=== PATIENT | female | born 1945 | race Asian ===

== ENCOUNTER 2019-04-18 18:48 | Inpatient (IN) | payer OTHER ==
[~2019-04-18] VITALS: Ht 162.6 cm; Wt 57.2 kg
[2019-04-18] MEDS: NACL 0.9% 1,000 ML IV SCH
[2019-04-18 19:01] VITALS: BP 169/89
--- NOTE | 2019-04-18 19:30 | NUR ---
74 Y/O F BIB DAUGHTER WITH C/O DIZZINESS SINCE FRIDAY. PER PT DAUGHTER "HAD SPINAL SURGERY 3 MONTHS AGO. LATELY WE NOTICED SHE IS WEAKER AND HAVING MORE FALLS." AAOX4. GCS 15. SPEECH CLEAR. BEHAVOIOR APPROPIATE AND CALM. PERRL PRESENT. DAUGHTER AT BEDSIDE. ERMD NOTIFIED. WILL CONTINUE TO MONITOR.
[2019-04-18 19:43] LABS: BASOPHILS % (AUTO) 0.4 % (0.0-2.0); EOSINOPHILS # (AUTO) 0.1 K/uL (0-0.4); EOSINOPHILS % (AUTO) 2.8 % (0.0-4.0); HEMATOCRIT 33.7 % (36-48); HEMOGLOBIN 11.2 g/dL (12.0-16.0); LYMPHOCYTES # (AUTO) 1.7 K/uL (2.5-16.5); LYMPHOCYTES % (AUTO) 30.7 % (20.5-51.1); MEAN CORPUSCULAR HEMOGLOBIN 30 pg (27-31); MEAN CORPUSCULAR HGB CONC 33 g/dL (33-37); MEAN CORPUSCULAR VOLUME 89.3 fL (80-94); MONOCYTES # (AUTO) 0.7 K/uL (0.8-1.0); MONOCYTES % (AUTO) 12.2 % (1.7-9.3); NEUTROPHILS # (AUTO) 2.9 K/uL (1.8-7.7); NEUTROPHILS % (AUTO) 53.9 % (42.2-75.2); PLATELET COUNT (AUTO) 188 K/uL (140-450); RED BLOOD CELL COUNT(AUTO) 3.77 MIL/uL (4.20-5.40); RED CELL DISTRIBUTION WIDTH 14.5 % (11.6-13.7); WHITE BLOOD COUNT (AUTO) 5.4 K/uL (4.8-10.8)
[2019-04-18] MEDS ORDERED: NACL 0.9% 1,000 ML IV ONE (19:55)
[2019-04-18 19:59] LABS: ALBUMIN 3.5 g/dL (3.4-5.0); ANION GAP 12.2 (8-16); ASPARTATE AMINOTRANSFERASE 26 U/L (15-37); CARBON DIOXIDE 27.7 mmol/L (21-32); CHLORIDE 106 mmol/L (98-107); CREATININE 1.4 mg/dL (0.6-1.3); GLUCOSE 146 mg/dL (74-106); POTASSIUM 3.9 mmol/L (3.5-5.1); SODIUM SERUM 142 mmol/L (136-145); TOTAL BILIRUBIN 0.3 mg/dL (0.0-1.0); UREA NITROGEN, BLOOD 21 mg/dL (7-18)
--- NOTE | 2019-04-18 20:11 | NUR ---
# 14 FR Urinary catheter inserted utilizing sterile technique. Immediate return of 300 ml YELLOW/CLEAR urine noted. Urine sample collected and sent to lab. Pt tolerated procedure WELL, CATH REMOVED. PROCEDURE CHAPERONED BY JETT MARK.
--- NOTE | 2019-04-18 20:30 | NUR ---
PT LAYING SUPINE. VSS AT THIS TIME. DAUGHTER AT BEDSIDE. WILL CONTINUE TO MONITOR.
[2019-04-18 21:44] LABS: APPEARANCE,URINE CLEAR (CLEAR); BILIRUBIN,URINE NEGATIVE (NEGATIVE); BLOOD, URINE NEGATIVE (NEGATIVE); COLOR,URINE YELLOW (YELLOW); LEUKOCYTE ESTERASE ,URINE NEGATIVE (NEGATIVE); NITRITE, URINE NEGATIVE (NEGATIVE); PH,URINE 7.5 (5.0-9.0); UGLUCOSE NEGATIVE (NEGATIVE)
--- NOTE | 2019-04-18 22:03 | NUR ---
DR. HOLLAND EVALUATING PT
--- NOTE | 2019-04-18 22:05 | NUR ---
ATTEMPED TO AMBULATE PT. PT UNABLE TO STAND WITHOUT ASSISTANCE. PT STATED " MY LEFT LEG FEELS WEAK. I CANT PUT ANY STRENGTH ON IT." DR. HOLLAND NOTIFIED.
[2019-04-18] MEDS ORDERED: MORPHINE SULFATE 2 MG/ML SYR IVP ONE (22:20)
--- NOTE | 2019-04-18 22:39 | NUR ---
PT RETURNED FROM CT
--- NOTE | 2019-04-18 22:39 | NUR ---
PT BACK FROM CT.
--- NOTE | 2019-04-18 23:30 | NUR ---
DR. HOLLAND BEDSIDE EVALUATING PT
[2019-04-18] MEDS ORDERED: ONDANSETRON 4 MG/2 ML VIAL IM/IVP PRN (23:45)
[2019-04-18] MEDS ORDERED: DOCUSATE SODIUM 100 MG GELCAP PO PRN (23:45)
[2019-04-18] MEDS ORDERED: HYDROcodone/APAP 7.5/325 MG 1 TAB PO PRN (23:45)
[2019-04-18] MEDS ORDERED: ACETAMINOPHEN 325 MG TAB PO PRN (23:45)
[2019-04-19] MEDS ORDERED: MEDICATION REC. PHARMACY CONS. 1 EA MISC MC PRN (00:05)
[2019-04-19 00:13] LABS: PROTHROMBIN TIME 10.4 secs (10.8-13.4)
[2019-04-19] MEDS ORDERED: ABAL1.56 SQ (00:15)
[2019-04-19] MEDS ORDERED: ASPI-1718 PO (00:15)
[2019-04-19] MEDS ORDERED: FENO145T PO (00:15)
[2019-04-19] MEDS ORDERED: FERR-252 PO (00:15)
[2019-04-19] MEDS ORDERED: CARB1TAB6 PO (00:15)
[2019-04-19] MEDS ORDERED: MEMA28CE1 PO (00:15)
[2019-04-19] MEDS ORDERED: DOCU-299 PO (00:15)
[2019-04-19] MEDS ORDERED: AZIL40TA PO (00:15)
[2019-04-19] MEDS ORDERED: OMEG10005 PO (00:15)
[2019-04-19] MEDS ORDERED: DULO60EC PO (00:15)
[2019-04-19] MEDS ORDERED: AMIO100T3 PO (00:15)
[2019-04-19] MEDS ORDERED: GABA300C PO (00:15)
[2019-04-19] MEDS ORDERED: MELA5TAB6 PO (00:15)
[2019-04-19] MEDS ORDERED: MULT-153 PO (00:15)
--- NOTE | 2019-04-19 00:15 | NUR ---
Patient will be admitted to care of Dr. Farr. Admited to [facility]. Will go to room 128A. Belongings list completed. VSS at time of transport. Report to JETT Woodard. Transfer of care at this time.
[2019-04-19 00:20] VITALS: BP 178/89
--- NOTE | 2019-04-19 00:20 | NUR ---
REPORT RECEIVED FROM ED NURSE AT BEDSIDE. PT IN STABLE CONDITION. AAOX4. INTRODUCED SELF TO PT AND FAMILY. BOARD UPDATED. NO COMPLAINTS OF PAIN. NO SOB. AFEBRILE. PT NOT ABLE TO AMBULATE BY HERSELF. PT INCONTINENT. IV SITE L HAND 22G RUNNING NS@40ML/HR PATENT AND INTACT. SKIN WARM, DRY, AND INTACT WITH NO OPEN WOUNDS. BED LOCKED IN LOW POSITION. CALL RIDLEY WITHIN REACH. SAFETY PRECAUTION IN PLACE.
[2019-04-19 00:38] LABS: FREE T4 (FREE THYROXINE) 1.13 ng/dL (0.76-1.46); MAGNESIUM 2.1 mg/dL (1.8-2.4); PHOSPHORUS 2.9 mg/dL (2.5-4.9); THYROID STIMULATING HORMONE 1.69 uIU/mL (0.34-3.74)
[2019-04-19] MEDS ORDERED: CARBIDOPA/LEVODOPA 10/100 MG 1 TAB PO SCH (00:40)
[2019-04-19] MEDS ORDERED: hydrALAZINE 20 MG/ML VIAL IVP PRN (00:40)
--- NOTE | 2019-04-19 00:45 | NUR ---
PT BP ELEVATED@178/89. NOTIFIED. AWAITING ORDERS.
[2019-04-19] MEDS ORDERED: LOSA50TA66 PO (00:48)
--- NOTE | 2019-04-19 01:11 | NUR ---
NORVASC GIVEN FOR INCREASED BP. MELATONIN GIVEN FOR SLEEP. PT TOLERATED WELL.
[2019-04-19] MEDS ORDERED: amLODIPine 5 MG TAB PO SCH (01:15)
[2019-04-19] MEDS ORDERED: MELATONIN 3 MG TAB PO SCH (01:30)
--- NOTE | 2019-04-19 02:45 | NUR ---
BP REASSESSED AFTER GIVEN AMLODIPINE. 155/74. NOTIFIED. NO FURTHER ORDERS.
--- NOTE | 2019-04-19 04:25 | NUR ---
PT AWAKE AND ALERT IN BED TRYING TO SLEEP. NO S/S OF DISTRESS NOTED. WILL CONTINUE TO MONITOR.
--- NOTE | 2019-04-19 06:20 | NUR ---
PT SLEEPING COMFORTABLY IN BED. NO S/S OF DISTRESS NOTED. WILL CONTINUE TO MONITOR.
[2019-04-19 06:51] LABS: BASOPHILS % (AUTO) 0.6 % (0.0-2.0); EOSINOPHILS # (AUTO) 0.1 K/uL (0-0.4); EOSINOPHILS % (AUTO) 2.9 % (0.0-4.0); HEMATOCRIT 33.3 % (36-48); HEMOGLOBIN 11.3 g/dL (12.0-16.0); LYMPHOCYTES # (AUTO) 1.5 K/uL (2.5-16.5); MEAN CORPUSCULAR HEMOGLOBIN 30 pg (27-31); MEAN CORPUSCULAR HGB CONC 34 g/dL (33-37); MEAN CORPUSCULAR VOLUME 89.8 fL (80-94); MONOCYTES # (AUTO) 0.5 K/uL (0.8-1.0); MONOCYTES % (AUTO) 10.4 % (1.7-9.3); NEUTROPHILS # (AUTO) 2.6 K/uL (1.8-7.7); NEUTROPHILS % (AUTO) 55.1 % (42.2-75.2); PLATELET COUNT (AUTO) 179 K/uL (140-450); RED BLOOD CELL COUNT(AUTO) 3.71 MIL/uL (4.20-5.40); RED CELL DISTRIBUTION WIDTH 14.4 % (11.6-13.7); WHITE BLOOD COUNT (AUTO) 4.8 K/uL (4.8-10.8)
[2019-04-19 07:01] LABS: CARBON DIOXIDE 24.9 mmol/L (21-32); CHLORIDE 110 mmol/L (98-107); CREATININE 1.1 mg/dL (0.6-1.3); GLUCOSE 102 mg/dL (74-106); POTASSIUM 3.9 mmol/L (3.5-5.1); SODIUM SERUM 144 mmol/L (136-145); UREA NITROGEN, BLOOD 14 mg/dL (7-18)
--- NOTE | 2019-04-19 07:28 | NUR ---
REPORT GIVEN TO AM NURSE AT BEDSIDE. PT IN STABLE CONDITION.
--- NOTE | 2019-04-19 07:34 | NUR ---
RECEIVED HAND OFF REPORT FROM PICKLER HELPER NURSE PT IS ASLEEP IN BED PT IS STABLE AND IN NO APPARENT DISTRESS. ALL SAFETY MEASURES ARE IN PLACE. WILL CONTINUE TO MONITOR.
[2019-04-19 08:00] VITALS: BP 163/89
[2019-04-19] MEDS ORDERED: LOSARTAN 50 MG TAB PO SCH (09:00)
[2019-04-19] MEDS ORDERED: AMANTADINE 100 MG CAP PO SCH (09:00)
[2019-04-19] MEDS: DOCUSATE SODIUM 100 MG GELCAP PO SCH ×2 (09:04→22:26)
[2019-04-19] MEDS: DULoxetine 30 MG CAPDR PO SCH (09:04)
[2019-04-19] MEDS: amLODIPine 5 MG TAB PO SCH (09:04)
[2019-04-19] MEDS: FENOFIBRATE 48 MG TAB PO SCH (09:06)
[2019-04-19] MEDS: GABAPENTIN 300 MG CAP PO SCH (09:06)
[2019-04-19] MEDS: ASPIRIN 81 MG TAB.CHEW PO SCH (09:06)
[2019-04-19] MEDS: LOSARTAN 50 MG TAB PO SCH (09:11)
--- NOTE | 2019-04-19 09:25 | NUR ---
SYMMETRAL NOT IN [facility] OR [place] CALLED PHARMACY THEY STATED THEY DONT HAVE IT AND WANT THE FAMILY TO BRING THIS MEDICATION. WILL CALL FAMILY AND ASK THEM TO BRING THE MEDICATION
--- NOTE | 2019-04-19 09:27 | NUR ---
CALLED AND LEFT VOICEMAIL FOR DEBORA PT DAUGHTER [phone] FOR THE FAMILY TO BRING SYMETRAL
--- NOTE | 2019-04-19 10:06 | NUR ---
PTS SON IS AT BEDSIDE. HE CALLED HIS SISTER I ASKED HER TO BRING THE PATIENTS MEDICATIONS IN THE BOTTLES BECAUSE THE PHARMACY IS ASKING FOR 2 OF THE MEDICATIONS. THE PT DAUGHTER STATED THAT SHE IS AWARE AND SHE FORGOT. BUT SHE WILL BRING THEM LATER THIS AFTERNOON. THE PTS SON ASKED ABOUT THE DIAPERS, I TOLD HIM WE ONLY USE THE KIND THAT ARE ON THE PT. HE ASKED IF HE COULD BRING HIS OWN BECAUSE THE MOTHER IS MORE COMFORTABLE IN THOSE. I SAID THAT IS OK
--- NOTE | 2019-04-19 12:50 | NUR ---
FREQUENT ROUNDING ON THE PT. PT IS AWAKE IN BED PT IS STABLE AND IN NO APPARENT DSITRESS. ALL SAFETY MEASURES ARE IN PLACE AND WILL CONTINUE TO MONITOR,
--- NOTE | 2019-04-19 15:12 | NUR ---
FREQUENT ROUNDING ON PT. PT IS AWAKE IN BED PT IS STABLE AND IN NO APPARENT DISTRESS. ALL SAFETY MEASURES ARE IN PLACE AND WILL CONTINUE TO MONITOR.
--- NOTE | 2019-04-19 16:05 | NUR ---
SPOKE WITH PTS DAUGHTER AGAIN ABOUT BRINGING THE HOME MEDICATIONS. SHE STATED THAT SHE WILL BRING THEM SOMETIME THIS EVENING. INFORMED CATRINA THAT WE ARE WORKING ON GETTING THE MEDICATIONS AND THAT THE FAMILY IS AWARE THAT WE NEED THE MEDICATIONS
--- NOTE | 2019-04-19 16:25 | NUR ---
FREQUENT ROUNDING ON PT PT IS STABLE AND IN NO APPARENT DISTRESS. ALL SAFETY MEASURES ARE IN PLACE. WILL CONTINUE TO MONITOR.
[2019-04-19 16:29] VITALS: BP 158/87
--- NOTE | 2019-04-19 18:48 | NUR ---
FREQUENT ROUNDING ON PT. PT IS STABLE AND IN NO APPARENT DISTRESS. ALL SAFETY MEASURES ARE IN PLACE. WILL CONTINUE TO MONITOR
--- NOTE | 2019-04-19 19:00 | NUR ---
PT FAMILY BROUGHT SOME HOME MEDICATIONS. NOT THE ONES WE ASKED FOR TOOK TO PHARMACY. BEFORE THEY CLOSED.
--- NOTE | 2019-04-19 19:30 | NUR ---
RECEIVED REPORT FROM JORGE FRAUSTO DAYSHIFT NURSE AT BEDSIDE FOR CONTINUITY OF CARE, PT IN STABLE CONDITION.
--- NOTE | 2019-04-19 19:34 | NUR ---
ENDORSED PT TO TOOL AND GAUGE INSPECTOR NURSE PT IS STABLE AND IN NO APPARENT DISTRESS. ALL SAFETY MEASURES ARE IN PLACE.
--- NOTE | 2019-04-19 20:00 | NUR ---
PT IN BED AOX2. ALL FALLS PRECAUTIONS IN PLACE. AND FAMILY AT BEDSIDE. V/S FOLLOWS T 97.6 P 72 R 18 B/P 145/81 02 98% WITH ROOM AIR. PT IS ARABIC SPEAKING. IV SITE ON L HAND 22G INTACT AND FLUSHED PATENT. FAMILY TRANSLATED FOR PT THAT SHE IS COMPLAINING OF PAIN IN IV SITE ON LEFT HAND. IV FLUIDS STOPPED AT THIS TIME.
[2019-04-19] MEDS ORDERED: SIMVASTATIN 10 MG TAB PO SCH (21:00)
--- NOTE | 2019-04-19 21:00 | NUR ---
PT IN BED ALL FALLS PRECAUTIONS IN PLACE. ASBESTOS HANDLER PHONE USED FOR MEDICATION ADMINISTRATION AND EDUCATION. IV SITE WAS FLUSHED PATENT WITH NO C/O VOICED. PT GIVEN DUE MEDS OF COLACE, MELATONIN AND HEPARIN. USED [employer] TRANSLATION SYSTEM WITH ASBESTOS HANDLER SPARKLE #[id number]. PT WAS ALSO ASKED VIA ASBESTOS HANDLER PHONE QUESTIONS OF ORIENTATION. PT WAS ABLE TO RECOGNIZE THAT SHE WAS IN A HOSPITAL AND SHE WAS AWARE OF THE DAY AND DATE. HOWEVER , SHE WAS ASKED IF SHE TAKES CARVA- LEVADOPA AT HOME AND IF SO HOW MUCH. THROUGH ASBESTOS HANDLER PT SAID SHE DOESNT KNOW.
--- NOTE | 2019-04-19 22:00 | NUR ---
PT TURNED, CHANGED AND REPOSITIONED IN BED.
[2019-04-19] MEDS: MELATONIN 3 MG TAB PO SCH (22:27)
[2019-04-19] MEDS: NACL 0.9% 1,000 ML IV SCH (23:43)
[2019-04-20] VITALS: BP 144/82
--- NOTE | 2019-04-20 00:35 | NUR ---
PT IN BED AND SPEAKING ALBANIAN TO PRIMARY NURSE, LUMI Mask LOT WORKER PHONE WAS USED WITH LOCAL SALES MANAGER KYLER #[id number]. THROUGH LOT WORKER, PT DOESN'T WANT TO HAVE FLUIDS RUNNING OVERNIGHT AND THAT SHE WONT GET TO SLEEP DUE TO HAVING TO URINATE A LOT. PT ALSO REQUEST IV SITE TO COME OUT AT THIS TIME. PT ASKED IF SHE WOULD BE WILLING TO HAVE ANOTHER SITE INSERTED AND SHE SAID CAN WE DO IT TOMORROW SHE DOESN'T WANT IT DONE NOW. PRIMARY NURSE ACKNOWLEDGED HE WISHES AND IV SITE WAS TAKEN OUT.
--- NOTE | 2019-04-20 01:15 | NUR ---
PT STARTED SPEAKING KINYARWANDA AND PAPER PRODUCTS SUPERVISOR PHONES USING PAYMEY SYSTEM WERE USED. PAPER PRODUCTS SUPERVISOR ELIOT#[id number]. PT WAS CONFUSED AND DIDN'T WANT THE PROVIDED PULL UPS FROM FAMILY. PT WAS COMPLAINING IT WAS TOO BIG. EXPLAINED VIA PAPER PRODUCTS SUPERVISOR THAT THESE SUPPLIES WERE BROUGHT FROM FAMILY AND THE HOSPITAL DOESN'T HAVE INCONTINENT SUPPLIES. PT DID ALLOW NURSE TO CHANGE AND REPOSITION PT. ALL FALLS PROTOCOL IN PLACE.
--- NOTE | 2019-04-20 04:30 | NUR ---
PT IN BED, ALL FALLS PRECAUTIONS IN PLACE, PT TURNED, CHANGED AND REPOSITION. NO S/S OF PAIN OR DISTRESS NOTED.
[2019-04-20 06:12] LABS: CARBON DIOXIDE 25.7 mmol/L (21-32); CHLORIDE 108 mmol/L (98-107); CREATININE 1.1 mg/dL (0.6-1.3); GLUCOSE 96 mg/dL (74-106); POTASSIUM 3.7 mmol/L (3.5-5.1); SODIUM SERUM 141 mmol/L (136-145); UREA NITROGEN, BLOOD 16 mg/dL (7-18)
[2019-04-20 06:19] LABS: BASOPHILS % (AUTO) 0.6 % (0.0-2.0); EOSINOPHILS # (AUTO) 0.2 K/uL (0-0.4); EOSINOPHILS % (AUTO) 3.3 % (0.0-4.0); HEMATOCRIT 33.5 % (36-48); HEMOGLOBIN 11.3 g/dL (12.0-16.0); LYMPHOCYTES % (AUTO) 37.7 % (20.5-51.1); MEAN CORPUSCULAR HEMOGLOBIN 30 pg (27-31); MEAN CORPUSCULAR HGB CONC 34 g/dL (33-37); MEAN CORPUSCULAR VOLUME 89.7 fL (80-94); MONOCYTES # (AUTO) 0.5 K/uL (0.8-1.0); NEUTROPHILS # (AUTO) 2.6 K/uL (1.8-7.7); NEUTROPHILS % (AUTO) 48.4 % (42.2-75.2); PLATELET COUNT (AUTO) 180 K/uL (140-450); RED BLOOD CELL COUNT(AUTO) 3.74 MIL/uL (4.20-5.40); RED CELL DISTRIBUTION WIDTH 14.2 % (11.6-13.7); WHITE BLOOD COUNT (AUTO) 5.4 K/uL (4.8-10.8)
--- NOTE | 2019-04-20 06:21 | NUR ---
PT IN BED SLEEPING, NO S/S OF PAIN OR DISTRESS NOTED.
--- NOTE | 2019-04-20 07:28 | NUR ---
REPORT GIVEN TO JORGE FRAUSTO DAYSHIFT NURSE AT BEDSIDE FOR CONTINUITY OF CARE, PT IN STABLE CONDITION.
--- NOTE | 2019-04-20 07:40 | NUR ---
RECEIVED HAND OFF REPORT FROM CORPORATE LEGAL INTERN RN PT IS STABLE AND IN NO APPARENT DISTRESS,
--- NOTE | 2019-04-20 07:42 | NUR ---
PT IS AGGITATED AND TRYING TO GET OUT OF BED. USED BLUE PHONE SALAD BAR CLERK TO EXPLAIN TO THE PATIENT THAT SHE CANT GET OUT OF BED WITHOUT ASKING FOR ASSISTANCE. PT STATED SHE WANTS TO LEAVE. CALLED PTS DAUGHTER. PTS DAUGHTER STATED THAT SHE WAS 10 MINUTES AWAY AND WILL BE HERE SOON
--- NOTE | 2019-04-20 07:55 | NUR ---
PT DAUGHTER IS AT THE BEDSIDE PT IS COOPERATIVE AND HAPPIER. PT IS STABLE AND IN NO APPARENT DISTRESS. ALL SAFETY MEASURES ARE IN PLACE WILL CONTINUE TO MONITOR,
[2019-04-20 08:00] VITALS: BP 144/84
--- NOTE | 2019-04-20 08:35 | NUR ---
DAUGHTER BROUGHT HOME MEDICATIONS TOOK INVENTORY AND PLACED SEVERAL MEDICATIONS IN THE PHARMACY THE MEDICATIONS WE DO NOT HAVE AND HAVE BEEN ASKING THE FAMILY TO BRING.
--- NOTE | 2019-04-20 09:00 | NUR ---
PT WALKING AROUND UNIT WITH PHYSICAL THERAPY
--- NOTE | 2019-04-20 09:14 | NUR ---
PATIENT HAS BEEN SCREENED AND CATEGORIZED MODERATE NUTRITION RISK. PATIENT WILL BE SEEN WITHIN 3-5 DAYS OF ADMISSION. 04/22/19GAYATHRI BELTR[address]N RD
[2019-04-20] MEDS ORDERED: MEMANTINE 28 MG PO SCH (10:18)
[2019-04-20] MEDS: FENOFIBRATE 48 MG TAB PO SCH (10:55)
[2019-04-20] MEDS: GABAPENTIN 300 MG CAP PO SCH (10:55)
[2019-04-20] MEDS: ASPIRIN 81 MG TAB.CHEW PO SCH (10:55)
[2019-04-20] MEDS: DOCUSATE SODIUM 100 MG GELCAP PO SCH ×2 (10:55→21:07)
[2019-04-20] MEDS: DULoxetine 30 MG CAPDR PO SCH (10:56)
[2019-04-20] MEDS: amLODIPine 5 MG TAB PO SCH (10:56)
[2019-04-20] MEDS: LOSARTAN 50 MG TAB PO SCH (10:57)
--- NOTE | 2019-04-20 11:17 | NUR ---
FREQUENT ROUNDING ON PT PT IS STABLE AND IN NO APPARENT DISTRESS. ALL SAFETY MEASURES ARE IN PLACE. WILL CONTINUE TO MONITOR.
[2019-04-20] MEDS ORDERED: AZILSARTAN 40 MG PO SCH (11:36)
[2019-04-20] MEDS: AMANTADINE 100MG TABLET PO SCH (12:04)
[2019-04-20] MEDS: CARBIDOPA LEVODOPA PO SCH (12:04)
--- NOTE | 2019-04-20 13:36 | NUR ---
FREQUENT ROUNDING ON PT IS STABLE AND IN NO APPARENT DISTRESS. ALL SAFETY MEASURES ARE IN PLACE. WILL CONTINUE TO MONITOR.
--- NOTE | 2019-04-20 15:25 | NUR ---
FREQUENT ROUNDING ON PATIENT PT IS STABLE AND IN NO APPARENT DISTRESS. ALL SAFETY MEASURES ARE IN PLACE AND IN NO APPARENT DISTRESS.
[2019-04-20 16:00] VITALS: BP 146/82
--- NOTE | 2019-04-20 19:27 | NUR ---
RECEIVED REPORT FROM DAY SHIFT NURSE FOR CONTINUITY OF CARE. PATIENT IS LYING DOWN IN BED, AWAKE, SON IS AT BEDSIDE. PATIENT IS IN ROOM AIR, NO IV. DENIES PAIN AT THIS TIME. BED IS IN LOW POSITION, SIDE RAILS ARE UP, AND CALL LIGHT WITHIN REACH. WILL CONTINUE TO MONITOR PATIENT.
--- NOTE | 2019-04-20 19:27 | NUR ---
ENDORSED PT TO CHIEF DESIGN DRAFTER NURSE PT IS STABLE AND IN NO APPARENT DISTRESS. ALL SAFETY MEASURES ARE IN PLACE WILL CONTINUE TO MONITOR,.
--- NOTE | 2019-04-20 20:05 | NUR ---
PATIENT LYING DOWN IN BED, SON AT BEDSIDE, INFORMED ABOUT URINE SAMPLE COLLECTION ORDER. BEDSIDE COMMODE AT BEDSIDE. INFORMED PATIENT ABOUT INSERTING NEW IV LINE. PATIENT REFUSED. DR. VAN NOTIFIED AND AWARE.
--- NOTE | 2019-04-20 21:00 | NUR ---
PATIENT LYING DOWN IN BED, SON AT BEDSIDE. ADMINISTERED MEDICATIONS ORDERED AND EDUCATED PATIENT AND SON REGARDING MEDICATIONS. PATIENT TOLERATED MEDICATION WELL. WILL CONTINUE TO MONITOR PATIENT.
[2019-04-20] MEDS: MELATONIN 3 MG TAB PO SCH (21:07)
[2019-04-20 21:51] LABS: APPEARANCE,URINE CLEAR (CLEAR); BILIRUBIN,URINE NEGATIVE (NEGATIVE); BLOOD, URINE NEGATIVE (NEGATIVE); COLOR,URINE YELLOW (YELLOW); LEUKOCYTE ESTERASE ,URINE NEGATIVE (NEGATIVE); NITRITE, URINE NEGATIVE (NEGATIVE); UGLUCOSE NEGATIVE (NEGATIVE)
[2019-04-20] MEDS: NACL 0.9% 1,000 ML IV SCH (23:43)
--- NOTE | 2019-04-21 | NUR ---
PATIENT LYING DOWN SLEEPING IN BED. VITAL SIGNS WERE TAKEN AND DENIES PAIN AT THIS TIME. WILL CONTINUE TO MONITOR PATIENT.
[2019-04-21 00:15] VITALS: BP 128/72
--- NOTE | 2019-04-21 02:30 | NUR ---
PATIENT LYING DOWN IN BED SLEEPING. NO SIGNS OF DISTRESS AT THIS TIME. WILL CONTINUE TO MONITOR PATIENT.
--- NOTE | 2019-04-21 04:30 | NUR ---
PATIENT LYING IN BED SLEEPING. NO SIGNS OF DISTRESS AT THIS TIME. WILL CONTINUE TO MONITOR PATIENT.
--- NOTE | 2019-04-21 07:20 | NUR ---
ENDORSED PATIENT TO DAY SHIFT NURSE FOR CONTINUITY OF CARE. PATIENT IS ASLEEP, LYING DOWN IN BED, WITH NO SIGNS OF DISTRESS. BED IS IN LOW POSITION, SIDE RAILS ARE UP, CALL LIGHT WITHIN REACH.
--- NOTE | 2019-04-21 07:22 | NUR ---
RECEIVED REPORT FROM CONSTRUCTION CRAFT LABORER NURSE FOR CONTINUITY OF CARE. PATIENT IS AWAKE AND RESTING ON BED AT THIS TIME. RESPIRATION EVEN AND UNLABORED ON RA. PATIENT SPEAKS JAPANESE ONLY, AND SHE IS ABLE TO MAKE NEEDS KNOWN BY HAND GESTURES AND SAYING YES OR NO. DENIES PAIN AND SOB AT THIS TIME. NO SIGNS OF DISTRESS NOTED. NO IV SITE. PATIENT AND FAMILY REFUSED IV INSERT. WAS AWARE. SKIN INTACT AND CLEAN. PATIENT IS TRANSFER WITH ASSIST AND UNSTEADY GAIT. PATIENT IS INCONTINENT. BED IS IN LOW POSITION, SIDE RAILS ARE UP, AND CALL LIGHT WITHIN REACH.
[2019-04-21 08:00] VITALS: BP 153/89
[2019-04-21] MEDS ORDERED: MEMANTINE 28 MG PO SCH (09:00)
[2019-04-21] MEDS ORDERED: AZILSARTAN 40 MG PO SCH (09:00)
[2019-04-21] MEDS ORDERED: CARBIDOPA LEVODOPA PO SCH (09:00)
[2019-04-21] MEDS: FENOFIBRATE 48 MG TAB PO SCH (09:07)
[2019-04-21] MEDS: ASPIRIN 81 MG TAB.CHEW PO SCH (09:08)
[2019-04-21] MEDS: DULoxetine 30 MG CAPDR PO SCH (09:08)
[2019-04-21] MEDS: DOCUSATE SODIUM 100 MG GELCAP PO SCH (09:08)
[2019-04-21] MEDS: amLODIPine 5 MG TAB PO SCH (09:09)
[2019-04-21] MEDS: GABAPENTIN 300 MG CAP PO SCH (09:09)
[2019-04-21] MEDS: AMANTADINE 100MG TABLET PO SCH ×2 (09:12→12:13)
--- NOTE | 2019-04-21 09:21 | NUR ---
ADMINISTERED MEDS PER MD ORDER, PATIENT TOLERATED WELL. MEDS EDUCATION PROVIDED TO PATIENT AND PATIENT'S DAUGHTER DEBORA AT BEDSIDE. PATIENT DENIES PAIN AND SOB AT THIS TIME. NO SIGNS OF DISTRESS NOTED. SAFETY MEASURES IN PLACE.
--- NOTE | 2019-04-21 10:15 | NUR ---
DR DAVEY PERMITTED PATIENT TO GO SHOWER. WILL NOTIFY INFANT NANNY TO ASSIST PATIENT TO TAKE A SHOWER.
--- NOTE | 2019-04-21 10:40 | NUR ---
CALLED [facility] [phone] SPOKE TO DELILAH, FAXED CLINICALS TO [phone], PER EDLILAH SHE WILL CALL BACK FOR ROOM.
--- NOTE | 2019-04-21 11:15 | NUR ---
PATIENT CAME BACK FROM SHOWER ACCOMPANIED BY HR SYSTEMS ANALYST AND DAUGHTER DEBORA. POSITIONED PATIENT ON BED COMFORTABLY. NO SIGNS OF DISTRESS NOTED. SAFETY MEASURES IN PLACE. BED IN LOW POSITION AND CALL LIGHT WITHIN REACH. INSTRUCTED PATIENT AND DAUGHTER DEBORA TO USE THE CALL LIGHT FOR ANY ASSISTANCE AND BOTH AWARE.
--- NOTE | 2019-04-21 12:10 | NUR ---
ADMINISTERED MEDS PER MD ORDER, PATIENT TOLERATED WELL. NO SIGNS OF DISTRESS NOTED. DAUGHTER DEBORA IS AT BEDSIDE AND ASSISTING PATIENT TO EAT LUNCH. SAFETY MEASURES IN PLACE.
[2019-04-21] MEDS: CARBIDOPA LEVODOPA PO SCH (12:12)
--- NOTE | 2019-04-21 13:18 | NUR ---
CALLED [facility] SPOKE WITH DELILAH,, PATIENT WILL GO TO BED 33-A, DR CATES IS ADMITTING MD.
--- NOTE | 2019-04-21 13:26 | NUR ---
PER DELILAH [facility] BED IS AVAILABLE AFTER 5PM.
--- NOTE | 2019-04-21 13:27 | NUR ---
CALLED [facility] ARRANGED FOR 6PM TAVERN OPERATOR.JETT JEFFREY NOTIFIED.
--- NOTE | 2019-04-21 13:36 | NUR ---
CALLED [facility] AND GAVE FULL REPORT TO CHARLES REDDY RN. ANSWERED ALL CHARLES'S QUESTIONS AND CHARLES WAS AWARE THAT PATIENT IS GOING TO TRANSFER TO HER FACILITY AT [address] IN ROOM 33A UNDER THE CARE OF DR CATES. PROVIDED A CALL BACK NUMBER IF CHARLES HAS ANY FURTHER QUESTION.
--- NOTE | 2019-04-21 13:45 | NUR ---
PATIENT IS RESTING ON BED COMFORTABLY AT THIS TIME. NO SIGNS OF DISTRESS NOTE. SAFETY MEASURES IN PLACE.
--- NOTE | 2019-04-21 14:25 | NUR ---
NOTIFIED PATIENT'S DAUGHTER AT BEDSIDE THAT PATIENT WILL BE TRANSFER TO [facility] AT 1800 TODAY. DEBORA WAS ACKNOWLEDGED AND AWARE OF THE TRANSFER.
[2019-04-21] MEDS ORDERED: ABALOPARATIDE 80 MCG SUBQ SCH (14:30)
--- NOTE | 2019-04-21 14:39 | NUR ---
ADMINISTERED MED VIA SUBQ, PATIENT TOLERATED WELL. PATIENT IS TALKING ON HER PHONE. NO SIGNS OF DISTRESS NOTED. SAFETY MEASURES IN PLACE.
[2019-04-21] MEDS ORDERED: AMLO5TAB PO (14:58)
--- NOTE | 2019-04-21 15:14 | NUR ---
PATIENT IS AWAKE AND LAYING DOWN ON BED. NO SIGNS OF DISTRESS NOTED. SAFETY MEASURES IN PLACE.
--- NOTE | 2019-04-21 15:26 | NUR ---
DISCHARGE DOCUMENT HAS BEEN PREPARED AND CHART HAS BEEN COPY. PATIENT WILL BE MOLDED [facility] BY [facility] AT 1800 AND TRANSFER TO [facility].
[2019-04-21 16:00] VITALS: BP 130/74
--- NOTE | 2019-04-21 17:11 | NUR ---
PATIENT IS AWAKE AND WATCHING TV ON BED. NO SIGNS OF DISTRESS NOTED. SAFETY MEASURES IN PLACE. BED IN LOW POSITION AND CALL LIGHT WITHIN REACH.
--- NOTE | 2019-04-21 17:36 | NUR ---
PATIENT IS TALKING TO SON SMILEY AT BEDSIDE. NO SIGNS OF DISTRESS NOTED. SAFETY MEASURES IN PLACE.
--- NOTE | 2019-04-21 18:10 | NUR ---
DISCHARGE INSTRUCTION PROVIDED TO PATIENT AND DAUGHTER DEBORA AT BEDSIDE. EDUCATED PATIENT AND FAMILY ON DISEASE MANAGEMENT, SIGNS AND SYMPTOMS, MEDICATION REGIMEN AND SIDE EFFECT. BOTH VERBALIZED UNDERSTANDING. ANSWERED ALL PATIENT�S AND FAMILY�S QUESTION. RETURNED ALL PATIENT�S OWN MEDS AND DAUGHTER TENZIN HAS VERIFIED MEDS. TENZIN HAS CHECKED ALL THE CABINETS AND TOOK ALL PATIENT�S BELONGINGS. REMOVED ALL ID BANDS FROM PATIENT. PATIENT IS GOING TO TRANSFER TO [facility] AT THIS TIME ACCOMPANY WITH [facility] AND DAUGHTER DEBORA. PATIENT IS IN STABLE CONDITION.
[2019-04-22] MEDS ORDERED: ABALOPARATIDE 80 MCG SUBQ SCH (09:00)
== END 2019-04-21 18:10 | DRG 73 ==
LOC: MED 18:48 → MTU 23:46 → MMU 04-19 00:07
PROVIDERS: ADMIT General Practice; ATTEND General Practice
DX: G90.8 Other disorders of autonomic nervous system (principal); N17.0 Acute kidney failure with tubular necrosis; M81.0 Age-related osteoporosis without current pathological fracture; I10 Essential (primary) hypertension; M19.90 Unspecified osteoarthritis, unspecified site; G20 Parkinson's disease; D64.9 Anemia, unspecified; E86.0 Dehydration; F02.80 Dementia in other diseases classified elsewhere, unspecified severity, without behavioral disturbance, psychotic disturbance, mood disturbance, and anxiety; N83.202 Unspecified ovarian cyst, left side; F32.9 Major depressive disorder, single episode, unspecified; E78.5 Hyperlipidemia, unspecified; Z98.1 Arthrodesis status; Z79.899 Other long term (current) drug therapy; Z91.81 History of falling
CPT/HCPCS: 36415; 70450; 71045; 72128; 72131; 80048; 80053; 81003; 83036; 83605; 83735; 83880; 84100; 84439; 84443; 84484; 85025; 85610; 85730; 87081; 93005; 93880; 97110; 97112; 97116; 97530; J1644; J2270; J7030; Q0092

== ENCOUNTER 2019-09-16 09:51 | Inpatient (IN) | payer OTHER ==
[~2019-09-16] VITALS: Ht 165.1 cm; Wt 66.7 kg
[~2019-09-16 09:51] MED LIST: ABAL1.56 SQ; AMLO5TAB PO; ASPI-1718 PO; AZIL40TA PO; CARB1TAB6 PO; DOCU-299 PO; DULO60EC PO; FENO145T PO; FERR-252 PO; GABA300C PO; LOSA50TA66 PO; MELA5TAB6 PO; MEMA28CE1 PO; MULT-153 PO; OMEG10005 PO
[2019-09-16 09:53] VITALS: BP 94/58
--- NOTE | 2019-09-16 09:54 | NUR ---
PT BIBA TO BED 02.
--- NOTE | 2019-09-16 10:00 | NUR ---
PT BIBA FOR LOW OXYGEN SATURATION THIS AM, PER EMS PT WAS FOUND TO HAVE A SP02 OF 88% ON RA. PER SON PT HAS NOT BEEN SICK RECENTLY NO COUGH OR SOB NOTED. PT ON ARRIVAL ON RA SP02 AT 94%. RR EVEN AND UNLABORED, BL BS CLEAR THROUGHOUT. PT AWAKE AND ALERT, PT KHMER SPEAKING ONLY. PT ON MONITOR AND 2L NC 02 AT 97%.
[2019-09-16] MEDS ORDERED: GABA400C PO (10:12)
[2019-09-16] MEDS ORDERED: CYAN100T65 PO (10:12)
[2019-09-16] MEDS ORDERED: OSC500 PO (10:12)
[2019-09-16] MEDS ORDERED: AZIL40TA PO (10:12)
[2019-09-16] MEDS ORDERED: CALC-55 PO (10:12)
[2019-09-16] MEDS ORDERED: MAGN400S60 PO (10:17)
[2019-09-16] MEDS ORDERED: DULO60EC PO (10:17)
[2019-09-16] MEDS ORDERED: MELA3TAB56 PO (10:21)
[2019-09-16] MEDS ORDERED: ASCO500T45 PO (10:21)
[2019-09-16] MEDS ORDERED: PYRI-218 PO (10:21)
--- NOTE | 2019-09-16 10:25 | NUR ---
DR SANCHEZ AND LAB AT BEDSIDE.
[2019-09-16] MEDS ORDERED: PROP10DR2 OP (10:26)
[2019-09-16] MEDS ORDERED: TURM500C7 PO (10:29)
[2019-09-16 10:40] LABS: BASOPHILS % (AUTO) 0.1 % (0.0-2.0); EOSINOPHILS % (AUTO) 0.3 % (0.0-4.0); HEMATOCRIT 33.3 % (36-48); HEMOGLOBIN 11.1 g/dL (12.0-16.0); LYMPHOCYTES # (AUTO) 0.3 K/uL (2.5-16.5); LYMPHOCYTES % (AUTO) 3.8 % (20.5-51.1); MEAN CORPUSCULAR HEMOGLOBIN 30 pg (27-31); MEAN CORPUSCULAR HGB CONC 33 g/dL (33-37); MEAN CORPUSCULAR VOLUME 90.4 fL (80-94); MONOCYTES # (AUTO) 0.2 K/uL (0.8-1.0); NEUTROPHILS # (AUTO) 8.1 K/uL (1.8-7.7); NEUTROPHILS % (AUTO) 93.8 % (42.2-75.2); PLATELET COUNT (AUTO) 188 K/uL (140-450); RED BLOOD CELL COUNT(AUTO) 3.69 MIL/uL (4.20-5.40); RED CELL DISTRIBUTION WIDTH 13.7 % (11.6-13.7); WHITE BLOOD COUNT (AUTO) 8.6 K/uL (4.8-10.8)
[2019-09-16 10:52] LABS: PROTHROMBIN TIME 11.3 secs (10.8-13.4)
[2019-09-16 11:02] LABS: CARBON DIOXIDE 24.3 mmol/L (21-32); CHLORIDE 104 mmol/L (98-107); CREATININE 1.2 mg/dL (0.6-1.3); GLUCOSE 110 mg/dL (74-106); POTASSIUM 3.3 mmol/L (3.5-5.1); SODIUM SERUM 139 mmol/L (136-145); UREA NITROGEN, BLOOD 27 mg/dL (7-18)
[2019-09-16 11:08] LABS: ALBUMIN 3.1 g/dL (3.4-5.0); ASPARTATE AMINOTRANSFERASE 32 U/L (15-37); TOTAL BILIRUBIN 0.6 mg/dL (0.0-1.0)
--- NOTE | 2019-09-16 12:04 | NUR ---
PATIENT TAKEN FOR CT SCAN VIA [facility] AT THIS TIME.
--- NOTE | 2019-09-16 12:50 | NUR ---
STRAIGHT CATH PERFOMED USING STERILE TECHNIQUE. 14 FR CATH USED. IMMEDIATE RETURN OF 30 CC YELLOW , CLOUDY URINE NOTED, SAMPLE COLLECTED AND SENT TO LAB.
[2019-09-16] MEDS ORDERED: NACL 0.9% 1,000 ML IV ONE (13:00)
[2019-09-16 13:17] LABS: APPEARANCE,URINE SL CLOUDY (CLEAR); BILIRUBIN,URINE NEGATIVE (NEGATIVE); BLOOD, URINE TRACE-I (NEGATIVE); COLOR,URINE YELLOW (YELLOW); LEUKOCYTE ESTERASE ,URINE 3+ (NEGATIVE); NITRITE, URINE POSITIVE (NEGATIVE); PH,URINE 7.5 (5.0-9.0); UGLUCOSE NEGATIVE (NEGATIVE)
[2019-09-16 13:25] LABS: RBC,URINE 0-5 /HPF (0-5)
[2019-09-16 13:26] LABS: WBC,URINE 60-80 /HPF (0-5)
--- NOTE | 2019-09-16 13:27 | NUR ---
PT LAYING IN BED, FAMILY MEMBERS AT BEDSIDE. RR EVEN AND UNLABORED. DENIES CHEST PAIN OR ANY PAIN. ALL NEEDS MET AT THIS TIME.
[2019-09-16] MEDS ORDERED: cefTRIAXone 1,000 MG VIAL ONE (14:31)
[2019-09-16] MEDS ORDERED: ACETAMINOPHEN 325 MG TAB PO PRN (14:40)
[2019-09-16] MEDS ORDERED: HYDROcodone/APAP 7.5/325 MG 1 TAB PO PRN (14:40)
[2019-09-16] MEDS ORDERED: ALBUTEROL SULFATE/IPRATROPIU 3 ML SOL IH PRN (14:40)
[2019-09-16] MEDS ORDERED: MORPHINE SULFATE 2 MG/ML SYR IVP PRN (14:40)
[2019-09-16] MEDS ORDERED: DOCUSATE SODIUM 100 MG GELCAP PO PRN (14:40)
[2019-09-16] MEDS ORDERED: ONDANSETRON 4 MG/2 ML VIAL IM/IVP PRN (14:40)
[2019-09-16] MEDS ORDERED: MELATONIN 3 MG TAB PO PRN (14:45)
[2019-09-16] MEDS ORDERED: POTASSIUM CHLORIDE 10 MEQ TABER PO SCH (15:00)
--- NOTE | 2019-09-16 15:03 | NUR ---
Patient will be admitted to care of DR MICHEL. Admited to TELE. Will go to [id number]. Belongings list completed. Report to JETT GONZALEZ.
[2019-09-16 15:05] VITALS: BP 108/60
--- NOTE | 2019-09-16 15:05 | NUR ---
RECEIVED PT FROM ER NURSE VIA LILA, PT IS ON BEDREST, CONFUSED AND SPEAKS SINHALA, ACCOMPANIED BY SON, IV LINE ON THE RT AC G. 20 WITH ROCEPHIN INFUSING AT 100ML/HR, SAFETY PRECAUTION INITIATED, ARM BAND PLACED, YELLOW SIGN AT THE DOOR, NO SIGN OF DISTRESS NOTED AND WILL CONTINUE TO MONITOR P;T.
[2019-09-16 15:28] LABS: MAGNESIUM 1.6 mg/dL (1.8-2.4); PHOSPHORUS 1.8 mg/dL (2.5-4.9); THYROID STIMULATING HORMONE 1.15 uIU/mL (0.34-3.74)
--- NOTE | 2019-09-16 15:30 | NUR ---
MRSA SWAB DONE TO PT AND SAMPLE SENT TO LAB.
[2019-09-16] MEDS: NACL 0.9% 1,000 ML IV SCH (15:35)
--- NOTE | 2019-09-16 15:35 | NUR ---
PT WAS STARTED ON IVF OF NS AT 100ML/HR.
--- NOTE | 2019-09-16 15:36 | NUR ---
PT WAS GIVEN 40MEQ K-DUR FOR K LEVEL OF 3.3, TOLERATED ORAL TABLETS, WILL MONITOR PT.
[2019-09-16 16:00] VITALS: BP 116/59
--- NOTE | 2019-09-16 19:20 | NUR ---
ENDORSED PT TO DIRECTOR OF INSTITUTIONAL RESEARCH NURSE, NILSA FOR CONTINUITY OF CARE. PT IS STABLE AT THIS TIME WITH FAMILY ON THE BEDSIDE.
--- NOTE | 2019-09-16 19:21 | NUR ---
RECEIVED REPORT FROM AM SHIFT NURSE. PATIENT AWAKE WITH FAMILY AT BEDSIDE. TAMAZIGHT SPEAKING. A/OX2, CONFUSED. INTRODUCED SELF AND UPDATED BOARD. IV ON RIGHT AC RUNNING IVF. NO COMPLAINT OF PAIN. NO DISTRESS NOTED. BED ON LOW POSITION. BED ALARM ON . CALL LIGHT WITHIN REACH. WILL CONTINUE TO MONITOR.
[2019-09-16] MEDS: ALBUTEROL SULFATE/IPRATROPIU 3 ML SOL IH SCH (19:53)
[2019-09-16 20:00] VITALS: BP 102/60
[2019-09-16] MEDS: GABAPENTIN 100 MG CAP PO SCH (20:21)
[2019-09-16] MEDS: ASCORBIC ACID 500 MG TAB PO SCH (20:21)
[2019-09-16] MEDS: DOCUSATE SODIUM 100 MG GELCAP PO SCH (20:29)
[2019-09-16] MEDS ORDERED: traZODone 50 MG TAB PO SCH (21:00)
--- NOTE | 2019-09-16 21:20 | NUR ---
PATIENT ASLEEP IN BED. VISIBLE CHEST RISE AND FALL NOTED. WILL CONTINUE TO MONITOR.
[2019-09-17] VITALS: BP 87/42
[2019-09-17] MEDS: NACL 0.9% 1,000 ML IV SCH ×3 (00:31→20:36)
[2019-09-17] MEDS ORDERED: NACL 0.9% 500 ML IV ONE (00:50)
--- NOTE | 2019-09-17 00:50 | NUR ---
Vitals taken; patient noted with decreased BP 87/42, MAP 55, HR 72, RR 14, Temp 98.3, O2Sat 97% on room air. Dr. Norris made aware; ordered received for fluid bolus. Will administer and monitor patient. Addendum: 09/17/19 at 0145 by Golden Nelson RN Patient is easily aroused, asymptomatic. Snores while sleeping.
[2019-09-17] MEDS ORDERED: MIDODRINE 5 MG TAB PO SCH (02:20)
--- NOTE | 2019-09-17 02:37 | NUR ---
Midodrine order received and carried out. Will continue to monitor patient.
--- NOTE | 2019-09-17 02:45 | NUR ---
Called [facility] to inquire about patients trending blood pressure. Charge nurse stated that patients SBP "around in the 90's" while patient is asleep.
[2019-09-17 04:00] VITALS: BP 90/52
--- NOTE | 2019-09-17 04:07 | NUR ---
PATIENT ASLEEP. VISIBLE CHEST RISE AND FALL NOTED. VITAL SIGNS TAKEN. BP=90/52, TEMP=98.5, HR=64, RR=17, O2 SAT= 98%. WILL CONTINUE TO MONITOR.
--- NOTE | 2019-09-17 06:05 | NUR ---
PATIENT ASLEEP IN BED. VISIBLE CHEST RISE AND FALL NOTED. NO APPARENT DISTRESS NOTED. BED ALARM ON. BED ON LOW POSITION. CALL LIGHT WITHIN REACH. WILL ENDORSE TO NEXT SHIFT FOR CONTINUITY OF CARE.
[2019-09-17 06:21] LABS: BASOPHILS % (AUTO) 0.3 % (0.0-2.0); EOSINOPHILS # (AUTO) 0.1 K/uL (0-0.4); EOSINOPHILS % (AUTO) 0.6 % (0.0-4.0); HEMATOCRIT 27.4 % (36-48); HEMOGLOBIN 9.1 g/dL (12.0-16.0); LYMPHOCYTES # (AUTO) 1.9 K/uL (2.5-16.5); LYMPHOCYTES % (AUTO) 21.4 % (20.5-51.1); MEAN CORPUSCULAR HEMOGLOBIN 31 pg (27-31); MEAN CORPUSCULAR HGB CONC 33 g/dL (33-37); MEAN CORPUSCULAR VOLUME 91.6 fL (80-94); MONOCYTES # (AUTO) 0.8 K/uL (0.8-1.0); MONOCYTES % (AUTO) 9.6 % (1.7-9.3); NEUTROPHILS % (AUTO) 68.1 % (42.2-75.2); PLATELET COUNT (AUTO) 120 K/uL (140-450); RED BLOOD CELL COUNT(AUTO) 2.99 MIL/uL (4.20-5.40); RED CELL DISTRIBUTION WIDTH 14.3 % (11.6-13.7); WHITE BLOOD COUNT (AUTO) 8.8 K/uL (4.8-10.8)
[2019-09-17 06:43] LABS: ANION GAP 10.8 (8-16); CARBON DIOXIDE 25.6 mmol/L (21-32); CHLORIDE 109 mmol/L (98-107); CREATININE 1.3 mg/dL (0.6-1.3); GLUCOSE 99 mg/dL (74-106); POTASSIUM 4.4 mmol/L (3.5-5.1); SODIUM SERUM 141 mmol/L (136-145); UREA NITROGEN, BLOOD 23 mg/dL (7-18)
[2019-09-17 06:46] LABS: MAGNESIUM 1.6 mg/dL (1.8-2.4); PHOSPHORUS 2.9 mg/dL (2.5-4.9)
[2019-09-17 06:54] LABS: CHOL/HDL RATIO 2.9 (1-4.5)
[2019-09-17] MEDS: ALBUTEROL SULFATE/IPRATROPIU 3 ML SOL IH SCH ×3 (06:59→19:00)
--- NOTE | 2019-09-17 07:41 | NUR ---
RECEIVED REPORT FROM CONDUCTOR SLEEPING CAR NURSE FOR CONTINUITY OF CARE. PATIENT IS HEAVILY SLEEPING DUE TO MEDICATION GIVEN LAST NIGHT. PT AROUSABLE BUT VERY SLEEPY. [place]I SPEAKING. A/OX2, CONFUSED. INTRODUCED SELF AND UPDATED BOARD. IV ON RIGHT AC RUNNING IVF. NO COMPLAINT OF PAIN. NO DISTRESS NOTED. BED ON LOW POSITION. BED ALARM ON . CALL LIGHT WITHIN REACH. WILL CONTINUE TO MONITOR PT CLOSELY.
[2019-09-17 08:00] VITALS: BP 91/57
--- NOTE | 2019-09-17 08:25 | NUR ---
PATIENT HAS BEEN SCREENED AND CATEGORIZED MODERATE NUTRITION RISK. PATIENT WILL BE SEEN WITHIN 3-5 DAYS OF ADMISSION. 09/19/19 09/21/[address]
--- NOTE | 2019-09-17 08:47 | NUR ---
ADMINISTERED MORNING MEDS TO PT. PT TOLERATED THEM WELL. ALL NEEDS CURRENTLY MET. WILL CONTINUE TO ROUND FREQUENTLY ON PT. BED IN LOW POSITION, CALL LIGHT WITHIN REACH. Addendum: 09/17/19 at 1440 by Chery Sullivan RN WAS NOT ABLE TO ADMIN MORNING MEDS SCHEDULED DUE TO PT BEING [place] SLEEPY. PER MD, MEDS TO BE HELD AND CAN GIVE NAMENDA, CYMBALTA, AND NEURONTIN ONCE PT AWAKENS. PT VITALS STABLE. FAMILY AT BEDSIDE. WILL ADMIN MEDS ONCE PT IS AWAKE AND MORE ALERT.
[2019-09-17] MEDS ORDERED: MAG SULF 2000 MG/WATER PREMIX 50 ML IV SCH (09:00)
[2019-09-17] MEDS ORDERED: LOSARTAN 25 MG TAB PO SCH (09:00)
[2019-09-17] MEDS: LACTOBACILLUS RHAMNOSUS GG 1 EACH CAP PO SCH (09:00)
[2019-09-17] MEDS: GABAPENTIN 100 MG CAP PO SCH ×2 (09:00→20:29)
[2019-09-17] MEDS: ASCORBIC ACID 500 MG TAB PO SCH ×2 (09:00→20:28)
[2019-09-17] MEDS ORDERED: MEMANTINE 10 MG TAB PO SCH (09:00)
[2019-09-17] MEDS: DOCUSATE SODIUM 100 MG GELCAP PO SCH ×2 (09:00→20:27)
[2019-09-17] MEDS: ASPIRIN 81 MG TAB.CHEW PO SCH (09:00)
[2019-09-17] MEDS: PYRIDOXINE 50 MG TAB PO SCH (09:00)
[2019-09-17] MEDS: MULTIVITAMIN 1 TAB PO SCH (09:00)
[2019-09-17] MEDS: CYANOCOBALAMIN 1,000 MCG TAB PO SCH (09:00)
[2019-09-17] MEDS: CALCIUM CARBONATE 500 MG TAB PO SCH (09:00)
[2019-09-17] MEDS: DULoxetine 30 MG CAPDR PO SCH ×2 (09:00→11:40)
--- NOTE | 2019-09-17 10:35 | NUR ---
Equity Manager Note: Name: DEBORA CHOWDHURY Home Relationship: DAUGHTER Pre-Admission Living Arrangements: SNF Prior ADL Needs Assistance Current Home Health Name/Tel: N/A Current DME/02 Name/Tel: [employer] Current Hospice Name/Tel: N/A Current Dialysis Name/Tel: N/A Healthcare Decision Maker: Next of Kin Advance Directive No Physician Orders for Life Sustaining Treatment Form No Patient/Family Have Educational Needs No Discipline: Case Mgt/Social Svcs Tentative Discharge Plan/Destination: SNF/ECF Tentative Discharge Plan Summary: Patient is a 74 year old female admitted for shortness of breath from [facility]. Patient has medical hx of HTN, dementia, osteoporosis, urinary incontinence, and degenerative disc disease. SW contacted Elie from admissions at [facility]. Per Elie, patient is penitentiary and is on a bed hold. Elie stated that patient's healthcare decision maker is daughter Debora Chowdhury, and is unsure if there is a DPOA. Patient has a mental health history of deperssion, and needs assistance with ADLs. Tentative discharge plan for patient is to return to [facility]. No further needs identified. Signature: NOA Mg Date: Sep 17, 2019 Time: 10:34
--- NOTE | 2019-09-17 11:19 | NUR ---
SKIN ASSESSMENT DONE, SKIN DRY AND CLEAN, NO OPEN WOUND , NO REDNESS, DR. ALAMO NOTIFIED, WILL CANCEL WOUND CARE EVALUATION. DAUGHTER AT BEDSIDE, POC DISCUSSED -TURN AND REPOSITION PATIENT Q 2H -ASSESS AND MONITOR SKIN CONDITION DURING POSITION CHANGE -OFFLOAD BILATERAL HEELS BY PLACING PILLOWS UNDER CALVES AT ALL TIMES, UNLESS OTHERWISE CONTRAINDICATED -PRESSURE REDISTRIBUTION BY PLACING PILLOWS AND OFFLOADING SACRALCOCCYX -KEEP SKIN CLEAN AND DRY AT ALL TIMES.
--- NOTE | 2019-09-17 11:21 | NUR ---
PT SLEEPING. ALL NEEDS MET. WILL CONTINUE TO ROUND FREQUENTLY ON PT. BED IN LOW POSITION, CALL LIGHT WITHIN REACH.
[2019-09-17] MEDS: MEMANTINE 10 MG TAB PO SCH ×2 (11:41→20:28)
[2019-09-17 12:00] VITALS: BP 128/92
--- NOTE | 2019-09-17 12:44 | NUR ---
DISCHARGE PLANNING 74 YRS OLD FEMALE ADMITTED FROM [facility] WITH A DX OF SOB O2 SAT 85%, UTI HAS A HX OF DEMENTIA, DEPRESSION AND OSTEOPOROSIS , O2 4L/NC ADMINISTERED ROCEPHIN IVPB ABX FOR UTI , IVF AND PULMO CONSULT WITH DR DENIS . DC PLAN TO GO BACK TO [facility] [place] PER FAMILY REQUEST CM TO FOLLOW
--- NOTE | 2019-09-17 13:38 | NUR ---
PT RESTING IN BED WITH FAMILY AT BEDSIDE. WILL CONTINUE TO ROUND FREQUENTLY ON PT. BED IN LOW POSITION, CALL LIGHT WITHIN REACH.
--- NOTE | 2019-09-17 15:50 | NUR ---
PT SITTING IN BED WATCHING TV WITH FAMILY. ALL NEEDS CURRENTLY MET. WILL CONTINUE TO ROUND FREQUENTLY ON PT. BED IN LOW POSITION, CALL LIGHT WITHIN REACH.
[2019-09-17 16:00] VITALS: BP 120/61
--- NOTE | 2019-09-17 17:54 | NUR ---
PT RESTING IN BED WITH FAMILY AT BEDSIDE. ALL NEEDS CURRENTLY MET. WILL CONTINUE TO ROUND FREQUENTLY ON PT. BED IN LOW POSITION, CALL LIGHT WITHIN REACH.
--- NOTE | 2019-09-17 19:33 | NUR ---
ENDORSED PT TO CONCRETE VAULT MAKER FOR CONTINUITY OF CARE. PT IN STABLE CONDITION AT THIS TIME.
--- NOTE | 2019-09-17 19:34 | NUR ---
RECEIVED REPORT FROM MANAGER CLINICAL APPLICATIONS NURSE FOR CONTINUITY OF CARE. DAUGHTER AT BEDSIDE. PT AAOX4. TAJIK SPEAKING. INTRODUCED SELF AND UPDATED BOARD. IV ON RIGHT A, 20G, PATENT, INTACT, AND ASYMPTOMATIC. NO COMPLAINT OF PAIN. NO DISTRESS NOTED. SKIN INTACT, WARM AND DRY TO TOUCH. BED ON LOW POSITION. BED ALARM ON . CALL LIGHT WITHIN REACH. WILL CONTINUE TO MONITOR PT CLOSELY.
[2019-09-17 20:00] VITALS: BP 146/70
--- NOTE | 2019-09-17 20:27 | NUR ---
GIVEN COLACE, NAMENDA, GABAPENTIN, VITAMIN C, AND HEPARIN MD ORDERED. PT TOLERATED WELL.
--- NOTE | 2019-09-17 20:50 | NUR ---
PT C/O CONSTIPATION, LBM 09/14/19, PT STATED PT TOOK MILK OF MAGNESIA WHEN SHE WAS IN [facility] BUT STILL NO BM. REPORTED DRJose Luis AND GIVEN MILK OF MAGNESIA DRJose Luis ORDERED. PT TOLERATED WELL. WILL CONTINUE TO MONITOR.
[2019-09-17] MEDS ORDERED: MAGNESIUM HYDROXIDE 2400 MG/30 ML UDC PO SCH (21:00)
--- NOTE | 2019-09-17 22:05 | NUR ---
PT SLEEPING IN BED. NO ACUTE DISTRESS NOTED. BED IN LOW POSITION, CALL LIGHT WITHIN REACH.
[2019-09-18] VITALS: BP 137/71
--- NOTE | 2019-09-18 00:03 | NUR ---
VS CHECKED, WITHIN PT'S BASELINE. WILL CONTINUE TO MONITOR.
--- NOTE | 2019-09-18 02:30 | NUR ---
PT SLEEPING IN BED COMFORTABLY. NO ACUTE DISTRESS NOTED.
[2019-09-18 04:00] VITALS: BP 139/68
--- NOTE | 2019-09-18 04:10 | NUR ---
VS CHECKED, WITHIN PT'S BASELINE, WILL CONTINUE TO MONITOR.
--- NOTE | 2019-09-18 06:27 | NUR ---
PT SLEEPING IN BED COMFORTABLY. NO DISTRESS NOTED.
[2019-09-18] MEDS: NACL 0.9% 1,000 ML IV SCH ×3 (06:36→21:57)
[2019-09-18] MEDS: ALBUTEROL SULFATE/IPRATROPIU 3 ML SOL IH SCH ×3 (06:44→19:21)
--- NOTE | 2019-09-18 07:14 | NUR ---
RECEIVED BED SIDE REPORT FROM NIGHT NURSE, PATIENT IN STABLE CONDITION, NO DISTRESS NOTED.
[2019-09-18 07:28] LABS: BASOPHILS % (AUTO) 0.2 % (0.0-2.0); EOSINOPHILS % (AUTO) 0.5 % (0.0-4.0); HEMATOCRIT 30.5 % (36-48); HEMOGLOBIN 10.2 g/dL (12.0-16.0); LYMPHOCYTES # (AUTO) 1.3 K/uL (2.5-16.5); LYMPHOCYTES % (AUTO) 18.7 % (20.5-51.1); MEAN CORPUSCULAR HEMOGLOBIN 30 pg (27-31); MEAN CORPUSCULAR HGB CONC 33 g/dL (33-37); MEAN CORPUSCULAR VOLUME 90.8 fL (80-94); MONOCYTES # (AUTO) 0.6 K/uL (0.8-1.0); NEUTROPHILS % (AUTO) 72.6 % (42.2-75.2); PLATELET COUNT (AUTO) 127 K/uL (140-450); RED BLOOD CELL COUNT(AUTO) 3.36 MIL/uL (4.20-5.40); RED CELL DISTRIBUTION WIDTH 14.1 % (11.6-13.7); WHITE BLOOD COUNT (AUTO) 6.9 K/uL (4.8-10.8)
[2019-09-18 07:43] LABS: ANION GAP 14.5 (8-16); CARBON DIOXIDE 21.6 mmol/L (21-32); CHLORIDE 110 mmol/L (98-107); CREATININE 0.9 mg/dL (0.6-1.3); GLUCOSE 114 mg/dL (74-106); POTASSIUM 4.1 mmol/L (3.5-5.1); SODIUM SERUM 142 mmol/L (136-145); UREA NITROGEN, BLOOD 12 mg/dL (7-18)
[2019-09-18 07:47] LABS: MAGNESIUM 1.9 mg/dL (1.8-2.4); PHOSPHORUS 1.8 mg/dL (2.5-4.9)
[2019-09-18 08:00] VITALS: BP 131/68
[2019-09-18] MEDS: GABAPENTIN 100 MG CAP PO SCH ×2 (10:00→21:46)
[2019-09-18] MEDS: ASPIRIN 81 MG TAB.CHEW PO SCH (10:01)
[2019-09-18] MEDS: CYANOCOBALAMIN 1,000 MCG TAB PO SCH (10:01)
[2019-09-18] MEDS: ASCORBIC ACID 500 MG TAB PO SCH ×2 (10:01→21:47)
[2019-09-18] MEDS: PYRIDOXINE 50 MG TAB PO SCH (10:02)
[2019-09-18] MEDS: CALCIUM CARBONATE 500 MG TAB PO SCH (10:02)
[2019-09-18] MEDS: DULoxetine 30 MG CAPDR PO SCH (10:02)
[2019-09-18] MEDS: LACTOBACILLUS RHAMNOSUS GG 1 EACH CAP PO SCH (10:03)
[2019-09-18] MEDS: MEMANTINE 10 MG TAB PO SCH ×2 (10:03→21:47)
[2019-09-18] MEDS: DOCUSATE SODIUM 100 MG GELCAP PO SCH ×2 (10:03→21:47)
[2019-09-18] MEDS: MULTIVITAMIN 1 TAB PO SCH (10:03)
--- NOTE | 2019-09-18 10:27 | NUR ---
SCHEDULED MEDS GIVEN TO PATIENT WITH SON AT THE BED SIDE. NO DISTRESS NOTED. WILL CONTINUE TO MONITOR.
[2019-09-18 12:00] VITALS: BP 130/75
--- NOTE | 2019-09-18 12:00 | NUR ---
PATIENT AT BEDSIDE CALMLY, RESTING. SON ON CHAIR WATCHING TV WITH PATIENT. NO DISTRESS NOTED. WILL CONTINUE TO MONITOR
--- NOTE | 2019-09-18 14:12 | NUR ---
PATIENT SLEEPING IN BED, NO DISTRESS NOTED. WILL CONTINUE TO MONITOR.
--- NOTE | 2019-09-18 15:41 | NUR ---
WITH ASSISTANCE, ATTEMPTED TO GET PATIENT ON COMMODE, PATIENT UNABLE TO STAND, PATIENT WAS THEN SAFETY TRANSFERRED BACK TO BED, BEDPAN USED, PATIENT CLEANED AND ROTATED TO OPPOSITE SIDE OF BED, WILL CONTINUE TO MONITOR.
[2019-09-18 16:00] VITALS: BP 141/73
--- NOTE | 2019-09-18 16:35 | NUR ---
PATIENT IN STABLE CONDITION. 1400 VITALS TAKEN. WILL CONTINUE TO MONITOR.
--- NOTE | 2019-09-18 18:48 | NUR ---
PATIENT UPRIGHT WATCHING TV WITH DAUGHTER AT THE BEDSIDE, NO DISTRESS NOTED. WILL CONTINUE TO MONITOR
--- NOTE | 2019-09-18 18:56 | NUR ---
PER PATIENT'S DAUGHTER, TO PLACE FOOD IN REFRIGERATOR.
--- NOTE | 2019-09-18 19:16 | NUR ---
GAVE END OF SHIFT REPORT TO CARDIAC SURGEON NURSE, PATIENT IN STABLE CONDITION
--- NOTE | 2019-09-18 19:30 | NUR ---
RECEIVED PATIENT ON ROOM AIR, PULSE OX SAT 99%. SCHEDULED BREATHING TREATMENT ADMINISTERED. TOLERATED TX WELL WITHOUT ADVERSE SIDE EFFECTS. FAMILY AT BEDSIDE. NO ACUTE RESPIRATORY DISTRESS NOTED. WILL CONTINUE TO MONITOR.
--- NOTE | 2019-09-18 19:35 | NUR ---
RECEIVED ENDORSEMENT AT PATIENTS BEDSIDE, DAUGHTER VISITING, NO DISTRESS NOTED, WILL FOLLOWUP CARE
--- NOTE | 2019-09-18 20:20 | NUR ---
RECEIVED PATIENT IN BED, EYES OPEN, ALERT, AWAKE. INDONESIAN SPEAKING ONLY. ABLE TO COMMUNICATE TO DAUGHTER NEEDS AND FOLLOW SIMPLE COMMANDS. HX OF DEMENTIA/PD, GENERALIZED WEAKNESS NOTED. ASSIST WITH ADL'S AND TOILETING NEEDS, DIAPER IN PLACE, PATIENT INCONTINENT, BEDSIDE COMMODE AT BEDSIDE FOR BOWEL MOVEMENT PER FAMILY REQUEST. ON ROOM AIR,ALL VITAL SIGNS WNL. AFEBRILE, SKIN WARM DRY LOOSE AND INTACT. RIGHT AC PERIPHERAL IV IN PLACE, FLUSHED AND PATENT WITHOUT SYMPTOMS, INFUSING NS @ 100ML/HR.LUNG SOUNDS ARE CLEAR, BREATHING IS UNLABORED, SYMMETRICAL CHEST RISE, PATIENT IS ALERT TO NAME AND PLACE. BED LOCKED AND IN LOW POSITION, CALL LIGHT WITHIN REACH, SAFETY ALARMS IN PLACE. WILL CONTINUE TO MONITOR
--- NOTE | 2019-09-18 21:00 | NUR ---
PATIENTS DAUGHTER ENDORSED TO RN THAT THE PATIENT HAS BEEN COMPLAINING OF DIFFICULTY SLEEPING, REQUESTING A MEDICATION THAT IS NOT TOO STRONG AND THAT THE PRN MEDICATION-MELATONIN IS NOT WORKING, WILL MAKE MD AWARE
--- NOTE | 2019-09-18 23:11 | NUR ---
PATIENT TURNED AND REPOSITIONED, OFFLOAD BONY PROMINENCES, PATIENT TOLERATED WELL
[2019-09-19] VITALS: BP 141/71
--- NOTE | 2019-09-19 01:00 | NUR ---
PATIENT VOIDED, DIAPER IN PLACE, CLEANED AND DRIED SKIN, SKIN INTACT. APPLIED NEW DIAPER, PATIENT TOLERATED WELL
--- NOTE | 2019-09-19 03:15 | NUR ---
PATIENT RESTING COMFORTABLY, EYES CLOSED, NO SIGNS OF SHORTNESS OF BREATH, ON ROOM AIR, SYMMETRICAL CHEST RISE. FLACC 0
--- NOTE | 2019-09-19 05:00 | NUR ---
PATIENT RESTING COMFORTABLY, EYES CLOSED, NO DISTRESS NOTED, FLACC 0, CALL LIGHT WITHIN REACH, SAFETY ALARMS IN PLACE
[2019-09-19] MEDS: ALBUTEROL SULFATE/IPRATROPIU 3 ML SOL IH SCH (06:31)
--- NOTE | 2019-09-19 07:30 | NUR ---
RECEIVED PT FROM BLACK AND WHITE PRINTER OPERATOR NURSE, PT IS AWAKE AND FAMILY ON THE BEDSIDE, SIDE RAILS ARE UP AND CALL LIGHT WITHIN REACH, BED ALARM ACTIVATED, IV LINE ON THE RT AC G. 20 WITH NS INFUSING AT 100ML/HR, INTACT, PT DENIES PAIN AND NO SIGN OF DISTRESS NOTED. WILL CONTINUE TO MONITOR PT.
[2019-09-19 08:00] VITALS: BP 129/77
--- NOTE | 2019-09-19 08:30 | NUR ---
DR. BURK IS IN THE PT'S ROOM AND TALKING TO THE DAUGHTERS, PT IS AWAKE AND NO SIGN OF DISTRESS NOTED. WILL MONITOR PT.
[2019-09-19 09:00] LABS: BASOPHILS % (AUTO) 0.4 % (0.0-2.0); EOSINOPHILS # (AUTO) 0.1 K/uL (0-0.4); EOSINOPHILS % (AUTO) 1.5 % (0.0-4.0); HEMATOCRIT 30.5 % (36-48); HEMOGLOBIN 10.2 g/dL (12.0-16.0); LYMPHOCYTES # (AUTO) 0.7 K/uL (2.5-16.5); LYMPHOCYTES % (AUTO) 14.7 % (20.5-51.1); MEAN CORPUSCULAR HEMOGLOBIN 30 pg (27-31); MEAN CORPUSCULAR HGB CONC 33 g/dL (33-37); MEAN CORPUSCULAR VOLUME 90.6 fL (80-94); MONOCYTES # (AUTO) 0.3 K/uL (0.8-1.0); MONOCYTES % (AUTO) 6.4 % (1.7-9.3); NEUTROPHILS # (AUTO) 3.5 K/uL (1.8-7.7); PLATELET COUNT (AUTO) 147 K/uL (140-450); RED BLOOD CELL COUNT(AUTO) 3.37 MIL/uL (4.20-5.40); RED CELL DISTRIBUTION WIDTH 13.8 % (11.6-13.7); WHITE BLOOD COUNT (AUTO) 4.5 K/uL (4.8-10.8)
[2019-09-19] MEDS: DULoxetine 30 MG CAPDR PO SCH (09:29)
[2019-09-19] MEDS: MEMANTINE 10 MG TAB PO SCH (09:29)
[2019-09-19] MEDS: ASPIRIN 81 MG TAB.CHEW PO SCH (09:30)
[2019-09-19] MEDS: GABAPENTIN 100 MG CAP PO SCH (09:31)
[2019-09-19] MEDS: CYANOCOBALAMIN 1,000 MCG TAB PO SCH (09:31)
[2019-09-19] MEDS: CALCIUM CARBONATE 500 MG TAB PO SCH (09:32)
[2019-09-19] MEDS: LACTOBACILLUS RHAMNOSUS GG 1 EACH CAP PO SCH (09:32)
[2019-09-19] MEDS: ASCORBIC ACID 500 MG TAB PO SCH (09:33)
[2019-09-19] MEDS: DOCUSATE SODIUM 100 MG GELCAP PO SCH (09:33)
[2019-09-19] MEDS: PYRIDOXINE 50 MG TAB PO SCH (09:34)
[2019-09-19] MEDS: MULTIVITAMIN 1 TAB PO SCH (09:34)
[2019-09-19 09:37] LABS: ANION GAP 14.8 (8-16); CARBON DIOXIDE 21.9 mmol/L (21-32); CHLORIDE 110 mmol/L (98-107); CREATININE 0.9 mg/dL (0.6-1.3); GLUCOSE 155 mg/dL (74-106); POTASSIUM 3.7 mmol/L (3.5-5.1); SODIUM SERUM 143 mmol/L (136-145); UREA NITROGEN, BLOOD 12 mg/dL (7-18)
--- NOTE | 2019-09-19 09:44 | NUR ---
PT IS AWAKE AND FAMILY ON THE BEDSIDE, ORAL AND IVPB MEDICATIONS WERE GIVEN, HEPARIN WAS HELD PER PARAMETER, DR. BURK WAS INFORMED, WILL CONTINUE TO MONITOR PT.
[2019-09-19 09:51] LABS: MAGNESIUM 1.4 mg/dL (1.8-2.4); PHOSPHORUS 2.5 mg/dL (2.5-4.9)
[2019-09-19] MEDS ORDERED: ROC2I IV (10:04)
[2019-09-19] MEDS ORDERED: ALBU3SOL83 IH (10:07)
--- NOTE | 2019-09-19 10:57 | NUR ---
SPOKE WITH BUDDY FROM [facility], PT IS GOING BACK TO ROOM 35-A. ROOM WILL BE AVAILABLE AFTER 1 PM TODAY. SET UP WHEELCHAIR TRANSPORT THRU [facility], SPOKE WITH LANE, EARLIEST ETA IS AT 4PM TODAY. KALPANA ASSIGNED MADE AWARE.
--- NOTE | 2019-09-19 11:40 | NUR ---
PT'S DAUGHTER MADE A WAIVER STATING THAT SHE WILL BE THE ONE RESPONSIBLE FOR THE TRANSPORT OF THE PT BACK TO [facility] VIA HER VEHICLE AND WILL BE SOLE RESPONSIBLE FOR WHATEVER CONSEQUENCES OF THE TRANSPORT MAY INCUR.
--- NOTE | 2019-09-19 11:55 | NUR ---
CALLED [facility] AT [phone] AND GAVE REPORT TO JETT MARSH REGARDING THE PT, WAS INFORMED THAT PT WILL BE PLACE IN RM 35-A AND WILL BE CONTINUED ON IV ROCEPHIN 1GM FOR 7 DAYS MORE AND ALBUTEROL PRN FOR SON Q6H,SO PT' IV LINE WILL BE KEPT ON SALINE LOCK AND WILL BE TRANSPORTED BY THE DAUGHTER, DEBORA AND . JETT LEBLANC WAS INFORMED THAT DAUGHTER SIGNED A WAIVER FORM FOR THE TRANSPORT AND RN VERBALIZED UNDERSTANDING.
--- NOTE | 2019-09-19 12:10 | NUR ---
CONTACTED [facility], SPOKE WITH LANE. TRANSPORTATION CANCELLED. PT'S DAUGHTER DEBORA WILL BE THE ONE TO [place]KE [place] [facility]
[2019-09-19] MEDS: NACL 0.9% 1,000 ML IV SCH (12:36)
--- NOTE | 2019-09-19 12:55 | NUR ---
[facility]GED [facility] TO [facility]IA WHEEL[facility]IR ACCOMPANIED BY FAMILY AND DAUGHTER WILL BE THE ONE TO TRANSPORT PT TO FACILITY, DISCHARGED INSTRUCTIONS GIVEN TO PT AND DAUGHTER WELL TO JETT MARSH IN [facility]. IV LINE WAS KEPT ON SALINE LOCK AND IS INTACT, PT DENIES PAIN AND NO SIGN OF DISTRESS NOTED. PT IS STABLE AT THIS TIME, BP IS 130/58, PULSE IS 88, O2 SATURATION IS 98% RA AND TEMP. IS 97.8.
[2019-09-19] MEDS ORDERED: MAGN241.1 PO (17:48)
== END 2019-09-19 12:55 | DRG 682 ==
LOC: MED 09:51 → MMU 14:38
PROVIDERS: ADMIT General Practice; ATTEND General Practice
DX: N17.9 Acute kidney failure, unspecified (principal); J96.91 Respiratory failure, unspecified with hypoxia; G93.41 Metabolic encephalopathy; E44.0 Moderate protein-calorie malnutrition; N12 Tubulo-interstitial nephritis, not specified as acute or chronic; F02.80 Dementia in other diseases classified elsewhere, unspecified severity, without behavioral disturbance, psychotic disturbance, mood disturbance, and anxiety; R79.1 Abnormal coagulation profile; E78.5 Hyperlipidemia, unspecified; M81.0 Age-related osteoporosis without current pathological fracture; E83.39 Other disorders of phosphorus metabolism; G20 Parkinson's disease; E83.42 Hypomagnesemia; I10 Essential (primary) hypertension; F32.9 Major depressive disorder, single episode, unspecified; E87.5 Hyperkalemia; E87.6 Hypokalemia; Z68.24 Body mass index [BMI] 24.0-24.9, adult; Z79.899 Other long term (current) drug therapy
CPT/HCPCS: 36415; 36600; 70450; 71045; 71275; 80048; 80053; 81001; 82803; 83036; 83605; 83735; 83880; 84100; 84443; 84484; 85025; 85379; 85610; 85730; 87040; 87081; 87086; 87186; 87804; 93005; 93308; 93970; 94640; 96361; 96365; 97116; 97161-GP; 97530; 99285; C1758; J0696; J1644; J3420; J3475; J7030; J7060; J7620; Q0092; Q9967

== ENCOUNTER 2021-10-09 13:54 | Inpatient (IN) | payer OTHER, SELFPAY ==
[~2021-10-09] VITALS: Ht 160 cm; Wt 54.4 kg
[~2021-10-09 13:54] MED LIST changes: +ALBU3SOL83 IH; -AMLO5TAB PO; +ASCO500T95 PO; -ASPI-1718 PO; +ASPI-1822 PO; +CALC-55 PO; -CARB1TAB6 PO; -DULO60EC PO; +DULO60EC1 PO; -FERR-252 PO; -GABA300C PO; +GABA400C PO; -LOSA50TA66 PO; +MAGN241.1 PO; +MAGN400S60 PO; +MELA3TAB21 PO; -MELA5TAB6 PO; -MULT-153 PO; +MULT-2112 PO; +OSC500 PO; +PROP10DR2 OP; +PYRI-218 PO; +ROC2I IV; +TURM500C7 PO; +VITB12 PO
[2021-10-09 14:10] VITALS: BP 122/76
--- NOTE | 2021-10-09 14:22 | NUR ---
Patient wheelchair assisted to bed 12.
[2021-10-09] MEDS ORDERED: NACL 0.9% 500 ML IV ONE (14:30)
--- NOTE | 2021-10-09 14:38 | NUR ---
Daughter at bedside
--- NOTE | 2021-10-09 14:40 | NUR ---
76 y/o F BIB family c/o generalized weakness and acute onset of confusion x 3-4 days. Daughter at bedside states patient has been experiencing generalized weakness and confusion that has been worsening since 10/04/2021. Pt states confusion worsened last night to where she mumbles words, A&Ox0 at this time. Pt responds to A&O questions with one-worded mumbling answers. Daughter states she normally is wheelchair bound and can ambulate a few steps with assistance and has not been able to do so. Pt with diaper and coccyx wound +R ankle ulcer L, heel ulcer dressing applied by family. Daughter states advanced parkinsons and pt has bee nhaving visual hallucinations, recently taken off Carbidopa-Levodopa. medicare sales executive in place; VSS respirations even/unlabored. Bed locked in lowest position, side rails x 1, call light in reach. Colace given this AM for constipation last BM: 2 days ago. PMH: PAKINSON'S DISEASE, HTN, DYSPHAGIA Meds: fenofibrate, mematine, gabapentin, quetiapine, zolpidiem, losartan, bisacodyl NKA Sx: back sx
--- NOTE | 2021-10-09 14:55 | NUR ---
lab at bedside. Chrissie handed to CPT
--- NOTE | 2021-10-09 15:05 | NUR ---
EMT at bedside for EKG
[2021-10-09 15:10] LABS: BASOPHILS % (AUTO) 0.4 % (0.0-2.0); EOSINOPHILS # (AUTO) 0.2 K/uL (0-0.4); EOSINOPHILS % (AUTO) 2.2 % (0.0-4.0); HEMATOCRIT 26.6 % (36-48); HEMOGLOBIN 8.9 g/dL (12.0-16.0); LYMPHOCYTES # (AUTO) 1.4 K/uL (2.5-16.5); LYMPHOCYTES % (AUTO) 19.1 % (20.5-51.1); MEAN CORPUSCULAR HEMOGLOBIN 30 pg (27-31); MEAN CORPUSCULAR HGB CONC 34 g/dL (33-37); MEAN CORPUSCULAR VOLUME 90.2 fL (80-94); MONOCYTES # (AUTO) 0.5 K/uL (0.8-1.0); MONOCYTES % (AUTO) 7.2 % (1.7-9.3); NEUTROPHILS # (AUTO) 5.2 K/uL (1.8-7.7); NEUTROPHILS % (AUTO) 71.1 % (42.2-75.2); PLATELET COUNT (AUTO) 226 K/uL (140-450); RED BLOOD CELL COUNT(AUTO) 2.95 MIL/uL (4.20-5.40); WHITE BLOOD COUNT (AUTO) 7.3 K/uL (4.8-10.8)
[2021-10-09 15:27] LABS: ALBUMIN 3.2 g/dL (3.4-5.0); ANION GAP 14.1 (8-16); ASPARTATE AMINOTRANSFERASE 23 U/L (15-37); CARBON DIOXIDE 25.7 mmol/L (21-32); CHLORIDE 112 mmol/L (98-107); CREATININE 1.1 mg/dL (0.6-1.3); GLUCOSE 155 mg/dL (74-106); POTASSIUM 3.8 mmol/L (3.5-5.1); SODIUM SERUM 148 mmol/L (136-145); TOTAL BILIRUBIN 0.3 mg/dL (0.0-1.0); UREA NITROGEN, BLOOD 34 mg/dL (7-18)
--- NOTE | 2021-10-09 16:01 | NUR ---
Pt placed onto left side supported by pillow.
[2021-10-09 16:40] LABS: BILIRUBIN,URINE NEGATIVE (NEGATIVE); BLOOD, URINE 2+ (NEGATIVE); COLOR,URINE YELLOW (YELLOW); LEUKOCYTE ESTERASE ,URINE TRACE (NEGATIVE); NITRITE, URINE NEGATIVE (NEGATIVE); UGLUCOSE NEGATIVE (NEGATIVE)
[2021-10-09 16:44] LABS: APPEARANCE,URINE HAZY (CLEAR)
[2021-10-09 16:48] LABS: RBC,URINE 0-5 /HPF (0-5); WBC,URINE 0-5 /HPF (0-5)
[2021-10-09] MEDS ORDERED: NACL 0.9% 1,000 ML IV ONE (17:20)
--- NOTE | 2021-10-09 18:10 | NUR ---
pt assisted with diaper change with daughter's assistance. All pt needs met.
--- NOTE | 2021-10-09 18:22 | NUR ---
Pt placed onto R side supported by pillow. 2 additional pillows to ankles and bilateral knee.
[2021-10-09] MEDS ORDERED: QUET25TA PO (18:46)
[2021-10-09] MEDS ORDERED: ASCO500T95 PO (18:46)
[2021-10-09] MEDS ORDERED: BISA-28 PO (18:46)
[2021-10-09] MEDS ORDERED: ZOLP10TA1 PO (18:46)
[2021-10-09] MEDS ORDERED: LOSA100T1 PO (18:46)
[2021-10-09] MEDS ORDERED: GABA300C PO (18:46)
--- NOTE | 2021-10-09 18:59 | NUR ---
Attempted to call report to [phone], states to recontact at [phone] for report.
--- NOTE | 2021-10-09 19:16 | NUR ---
Report and transfer of care endorsed to JETT Jones
--- NOTE | 2021-10-09 19:42 | NUR ---
REPORT GIVEN AT THIS TIME TO RECEIVEING RN EXT [phone] FOR TRANSFER TO ROOM 124A
[2021-10-09 23:32] VITALS: BP 154/81
--- NOTE | 2021-10-10 02:04 | NUR ---
the pateint was admitted to the MST unit on 10/09/2021 at 2100 for confusion and generalized weakness. she has hx of htn . dementia, and PD. she has coccyx pressure wound. vitals are stable. breathing is even and unlabored. Slovak speaking patient history was given by the daughter. comfort and safety measures are provided.
[2021-10-10 04:00] VITALS: BP 150/86
--- NOTE | 2021-10-10 07:37 | NUR ---
RECEIVED REPORT FROM AUTOMOBILE SERVICE STATION MECHANIC NURSE. PATIENT LYING DOWN IN BED, AWAKE. NO DISTRESS NOTED. AAOX3, APPROPRIATE AFFECT. HAS COCCYX, RIGHT ANKLE, LEFT HEEL WOUNDS, DRESSINGS INTACT, DRY. IV SITE INTACT, PATENT, AND INFUSING IVF PER MD ORDERS. REVIEWED PLAN OF CARE WITH PATIENT. REINFORCEMENT NEEDED. SAFETY MEASURES IN PLACE, CALL LIGHT WITHIN REACH. WILL CONTINUE TO MONITOR.
[2021-10-10 08:00] VITALS: BP 152/80
[2021-10-10] MEDS ORDERED: HYDROcodone/APAP 7.5/325 MG 1 TAB PO PRN (08:20)
[2021-10-10] MEDS ORDERED: guaiFENesin DM 200/20 MG-10 ML 10 ML UDC PO PRN (08:20)
[2021-10-10] MEDS: NACL 0.9% 1,000 ML IV SCH ×2 (08:20→20:50)
[2021-10-10] MEDS ORDERED: ZOLPIDEM 5 MG TAB PO PRN (08:20)
[2021-10-10] MEDS ORDERED: ACETAMINOPHEN 325 MG TAB PO PRN (08:20)
[2021-10-10] MEDS ORDERED: POTASSIUM CHLORIDE 10 MEQ TABER PO PRN (08:20)
[2021-10-10] MEDS ORDERED: DOCUSATE SODIUM 100 MG GELCAP PO PRN (08:20)
[2021-10-10] MEDS ORDERED: ONDANSETRON 4 MG/2 ML VIAL IM/IVP PRN (08:20)
--- NOTE | 2021-10-10 08:58 | NUR ---
PATIENT HAS BEEN SCREENED AND CATEGORIZED HIGH NUTRITION RISK. PATIENT WILL BE SEEN WITHIN 1-2 DAYS OF ADMISSION. 10/10/21-10/11/21 REFERRAL RECEIVED FOR REFUSAL TO EAT OVER [address]
[2021-10-10] MEDS ORDERED: MEMANTINE 10 MG TAB PO SCH (09:00)
[2021-10-10] MEDS ORDERED: NON-FORMULARY ITEM (Memantine HCl (Namenda Xr) 28 MG) PO SCH (09:00)
[2021-10-10] MEDS: MEMANTINE 10 MG TAB PO SCH ×2 (09:29→21:57)
[2021-10-10] MEDS: LOSARTAN 50 MG TAB PO SCH (09:29)
[2021-10-10] MEDS: GABAPENTIN 300 MG CAP PO SCH ×2 (09:29→21:57)
[2021-10-10] MEDS: PANTOPRAZOLE 40 MG TABEC PO SCH (09:29)
--- NOTE | 2021-10-10 09:39 | NUR ---
SCHEDULED MEDICATIONS DUE GIVEN. SON AT BEDSIDE. WILL CONTINUE TO MONITOR.
[2021-10-10 10:58] LABS: ANION GAP 12.2 (8-16); CARBON DIOXIDE 25.3 mmol/L (21-32); CHLORIDE 112 mmol/L (98-107); CREATININE 0.9 mg/dL (0.6-1.3); GLUCOSE 117 mg/dL (74-106); POTASSIUM 3.5 mmol/L (3.5-5.1); SODIUM SERUM 146 mmol/L (136-145); UREA NITROGEN, BLOOD 22 mg/dL (7-18)
[2021-10-10 11:03] LABS: MAGNESIUM 1.7 mg/dL (1.8-2.4); PHOSPHORUS 2.4 mg/dL (2.5-4.9)
[2021-10-10 11:14] LABS: CHOL/HDL RATIO 3.4 (1-4.5); FREE T4 (FREE THYROXINE) 1.16 ng/dL (0.76-1.46); MAGNESIUM 1.8 mg/dL (1.8-2.4); PHOSPHORUS 2.4 mg/dL (2.5-4.9); THYROID STIMULATING HORMONE 1.13 uIU/mL (0.34-3.74)
[2021-10-10 11:22] LABS: PROTHROMBIN TIME 11.6 secs (10.8-13.4)
--- NOTE | 2021-10-10 12:43 | NUR ---
10/10/21 RD INITIAL ASSESSMENT COMPLETED PLEASE REFER TO NUTRITION ASSESSMENT UNDER CARE ACTIVITY FOR ESTIMATED NUTRITIONAL NEEDS. 1. CONTINUE MECHANICAL SOFT DIET TOLERATED BUT WITH GROUND MEAT 2. PENDING SWALLOW EVAL 3. RECOMMEND MEAL ASSISTANCE 4. RECOMMEND ENSURE ENLIVE BID + ARLEY BID 5. RD TO FOLLOW-UP 2-3 DAYS, HIGH RISK REVIEWED BY KORY MCGUIRE RD
[2021-10-10] MEDS ORDERED: bisacodyL 10 MG SUPP RC PRN (14:00)
--- NOTE | 2021-10-10 14:22 | NUR ---
PATIENT COMPLAINS OF CONSTIPATION, WANTS TO HAVE BM. REFUSES COLACE PO IT DOES NOT WORK AT CUSTODIAL PER PATIENT'S SON, WHO IS AT BEDSIDE. BISACODYL SUPPOSITORY GIVEN AT THIS TIME. WILL CONTINUE TO MONITOR.
--- NOTE | 2021-10-10 15:49 | NUR ---
DC PLANNING: THE PATIENT ADMITTED FROM HOME THROUGH THE ED WITH C/O OF PROGRESSIVE WEAKNESS AND CONFUSION. H/O HTN AND DEMENTIA, FAMILY REQUESTING SNF PLACEMENT FOR MANAGEMENT. DC PLANNING: THE PATIENT ADMITTED FROM HOME WITH C/O INCREASING WEAKNESS, DYSPHAGIA AND CONFUSION, HAS H/O DEMENTIA, PARKINSONS AND HTN. THE PATIENT HAS LE ULCERS AND A SACRAL DECUBITUS, GI CONSULT ORDERED FOR DYSPHAGIA EVALUATION ALONG WITH SPEECH EVALUATION. STARTED ON ROCEPHIN IV. DR BUTTERFIELD SPOKE WITH THE PATIENTS DTR DEBORA CONCERNING PEG PLACEMENT BUT SHE DECLINED AT THIS TIME. CM MET WITH THE PATIENTS SON ORQUIDEA SOTO AT THE PATIENTS BEDSIDE AND CONFIRMED THE PATIENTS ADDRESS AND PHONE NUMBER. NATALIE ALSO SPOKE WITH THE PATIENTS DAUGHTER DEBORA BY PHONE. DEBORA STATES THAT DR BUTTERFIELD WANTS TO DO AN EGD WHICH SHE HAS AGREED TO. THE PATIENT SPLITS HER TIME BETWEEN HER SONS RESIDENCE AND HER DAUGHTERS AND HAS BEEN WC BOUND FOR THE LAST 2.5 YEARS S/P BACK SURGERY. SHE IS DEPENDENT WITH ADL'S AND WAS PREVIOUSLY AT [facility]. FAMILY WOULD LIKE HER TO GO BACK THERE FOR P.T. AND O.T., PATIENT WILL ALSO NEED WOUND CARE. THE PATIENTS FAMILY IS REFUSING ARRANGED TRANSPORT [place] [facility] AND WILL TRANSPORT HER THEMSELVES. SPEECH EVALUATION AND EGD ARE PENDING, CM WILL REFER TO [facility] ONCE W/U IS COMPLETED. CM WILL FOLLOW FOR NEEDS. Addendum: 10/11/21 at 1117 by Pamela Patricia CM DC PLANNING: REFERRAL SENT TO [facility] PER FAMILY REQUEST, CM WILL FOLLOW UP REGARDING PLACEMENT. Addendum: 10/11/21 at 1224 by Pamela Patricia CM DC PLANNING: TC GISEL GARCIA AT [facility], PATIENT ACCEPTED, ROOM ASSIGNMENT PENDING DC ORDER. VM LEFT FOR THE PATIENTS VIKAS CAZARES ENDORSING ABOVE. CM WILL FOLLOW FOR NEEDS. Addendum: 10/12/21 at 0926 by Pamela Patricia CM DC PLANNING: PATIENT ACCEPTED TO [facility] , ROOM 53A, DR BURK ACCEPTING. NUMBER TO CALL REPORT [phone], FAMILY WILL TRANSPORT PER MY CONVERSATION WITH THE PATIENTS VIKAS CAZARES. CM WILL CONFIRM TRANSPORT WITH FAMILY AND FOLLOW FOR NEEDS. Addendum: 10/12/21 at 1042 by Pamela Patricia CM DC PLANNING: NATALIE SPOKE WITH THE PATIENTS DAUGHTER DEBORA AT BEDSIDE, SHE STATES THAT SHE BROUGHT LUNCH FOR THE PATIENT AND WILL TRANSPORT HER TO [facility] AT 12:30. RN AND [facility] UPDATED. NATALIE WILL FOLLOW FOR NEEDS.
[2021-10-10 16:00] VITALS: BP 153/85
[2021-10-10] MEDS: SENNA 8.6 MG TAB PO SCH ×2 (17:22→21:58)
--- NOTE | 2021-10-10 17:23 | NUR ---
SCHEDULED MEDICATIONS DUE GIVEN. WILL CONTINUE TO MONITOR.
--- NOTE | 2021-10-10 19:38 | NUR ---
GAVE REPORT TO MATE FISHING VESSEL NURSE FOR CONTINUITY OF CARE. PATIENT IN STABLE CONDITION.
[2021-10-10] MEDS: LACTULOSE 20 GM/30 ML UDC PO SCH (21:55)
[2021-10-10] MEDS: QUEtiapine FUMARATE 25 MG TAB PO SCH (21:56)
[2021-10-11] VITALS: BP 146/81
--- NOTE | 2021-10-11 06:49 | NUR ---
the patient vitals are stable. breathing is even and unlabored. she pulled her Iv catheter. . many attempts of IV REINSERTION .no success. she has bilateral upper extremities strength/ bed is low position she is waiting for speech eval and possible EGD
--- NOTE | 2021-10-11 07:05 | NUR ---
PT AWAKE NOT ON ANY DISTRESS. RECEIVED ENDORSEMENT FROM TELE TECH NURSE. ALL SAFETY MEASURE IN PLACE. CALL LIGHT WITH IN EASY REACH.
[2021-10-11 07:52] LABS: BASOPHILS % (AUTO) 0.5 % (0.0-2.0); EOSINOPHILS # (AUTO) 0.1 K/uL (0-0.4); EOSINOPHILS % (AUTO) 1.1 % (0.0-4.0); HEMATOCRIT 28.2 % (36-48); HEMOGLOBIN 9.4 g/dL (12.0-16.0); LYMPHOCYTES # (AUTO) 1.5 K/uL (2.5-16.5); LYMPHOCYTES % (AUTO) 21.6 % (20.5-51.1); MEAN CORPUSCULAR HEMOGLOBIN 30 pg (27-31); MEAN CORPUSCULAR HGB CONC 33 g/dL (33-37); MONOCYTES # (AUTO) 0.5 K/uL (0.8-1.0); MONOCYTES % (AUTO) 7.8 % (1.7-9.3); NEUTROPHILS # (AUTO) 4.8 K/uL (1.8-7.7); PLATELET COUNT (AUTO) 229 K/uL (140-450); RED BLOOD CELL COUNT(AUTO) 3.14 MIL/uL (4.20-5.40); RED CELL DISTRIBUTION WIDTH 15.4 % (11.6-13.7); WHITE BLOOD COUNT (AUTO) 6.9 K/uL (4.8-10.8)
[2021-10-11 08:00] VITALS: BP 156/90
--- NOTE | 2021-10-11 08:00 | NUR ---
PATIENT HAS NO IV SITE AT THIS TIME. WILL ATTEMPT IV PLACEMENT.
[2021-10-11 08:07] LABS: ANION GAP 17.6 (8-16); CARBON DIOXIDE 20.8 mmol/L (21-32); CHLORIDE 109 mmol/L (98-107); CREATININE 0.8 mg/dL (0.6-1.3); GLUCOSE 96 mg/dL (74-106); POTASSIUM 3.4 mmol/L (3.5-5.1); SODIUM SERUM 144 mmol/L (136-145); UREA NITROGEN, BLOOD 17 mg/dL (7-18)
--- NOTE | 2021-10-11 08:31 | NUR ---
ATTEMPTED TO PLACE NEW IV SITE. FAMILY AT BEDSIDE. PER FAMILY, THEY WOULD PREFER THAT WE STOP ATTEMPTING TO PLACE IV. THEY WOULD LIKE ANOTHER ALTERNATIVE/FORM OF ANTIBIOTICS. INFORMED DR ALVAREZ. AWAITING ORDERS.
[2021-10-11] MEDS: LACTULOSE 20 GM/30 ML UDC PO SCH ×2 (08:46→10:05)
[2021-10-11] MEDS: PANTOPRAZOLE 40 MG TABEC PO SCH (08:46)
[2021-10-11] MEDS: SENNA 8.6 MG TAB PO SCH ×3 (08:46→20:15)
[2021-10-11] MEDS: GABAPENTIN 300 MG CAP PO SCH ×2 (08:46→20:15)
[2021-10-11] MEDS: MEMANTINE 10 MG TAB PO SCH ×2 (08:47→20:14)
--- NOTE | 2021-10-11 08:53 | NUR ---
GIVEN ALL DUE MEDICATION TOLERATED BUT DO IT SLOWLY. AT BED SIDE TALKING TO DAUGHTER REGARDING THE PLAN OF CARE.
[2021-10-11] MEDS: NACL 0.9% 1,000 ML IV SCH (09:20)
[2021-10-11] MEDS: LOSARTAN 50 MG TAB PO SCH (09:41)
[2021-10-11] MEDS ORDERED: cefTRIAXone 1,000 MG in LIDOCAINE MPF 1% 2.1 ML IM SCH ×4 (10:20)
--- NOTE | 2021-10-11 10:53 | NUR ---
PT AWAKE TRUCK MECHANIC APPRENTICE DID AM CARE. TREATMENT DONE ON COCCYX, LEFT HEEL AND LEG. TOLERATED WELL COCCYX WOUND WITH SLIGHT DRAINAGE NO SLOUGH NOTED. KEEP PT. COMFORTABLE. HEAD OF BED ELEVATED. INFORM OF NEW ORDER AND SOON IT DELIVER WILL ADMINISTER. ALL SAFETY MEASURE IN PLACE. CALL LIGHT WITH IN EASY REACH. DAUGHTER AT BEDSIDE
[2021-10-11] MEDS ORDERED: cefTRIAXone 1,000 MG VIAL ONE (11:43)
[2021-10-11] MEDS ORDERED: LIDOCAINE MPF 1% 5 ML ONE (11:43)
[2021-10-11] MEDS: cefTRIAXone 1,000 MG in LIDOCAINE MPF 1% 2.1 ML INJ SCH (11:51)
--- NOTE | 2021-10-11 11:52 | NUR ---
PT GIVEN IM ROCEPHIN ON RIGHT DELTOID TOLERATED WELL. ALL SAFETY MEASURE IN PLACE. CALL LIGHT WITH IN EASY REACH.
--- NOTE | 2021-10-11 12:09 | NUR ---
PATIENT HAS ORDER FOR ROCEPHIN 1000MG WITH XYLOCAINE FOR 1145. HOWEVER, MEDICATION WAS PREVIOUSLY ORDERED AND ALREADY GIVEN AT 1151. INFORMED PHARMACY, WAS INSTRUCTED NOT TO ADMINISTER THIS CURRENT DOSE DUE TO ALREADY HAVE GIVEN DOSE.
--- NOTE | 2021-10-11 13:27 | NUR ---
PT AWAKE DAUGHTER REQUESTED FOR PT TO BE CHANGE DUE TO URINATING. DIAPER CHANGE REQUEST TOLERATED WELL. PT. ON STABLE CONDITION. NO ADVERSE REACTION NOTED. ON IM ANTIBIOTIC. NO FEVER, CHILLS. ENCOURAGED TO INCREASE FLUID TOLERATED.
--- NOTE | 2021-10-11 15:20 | NUR ---
PT ALERT BLADDER SCAN DONE WITH ONLY 20 ML NOTED RESIDUAL ON BLADER. INFORM DR. ALVAREZ. Addendum: 10/11/21 at 1638 by Alondra Ferreira LVN ENTER TO WRONG PT.
[2021-10-11 16:00] VITALS: BP 141/80
--- NOTE | 2021-10-11 16:30 | NUR ---
pt was seen for dysphagai. pt was able to safely swallow puree diet with thin liquid. recommendation puree diet with thin liquid
--- NOTE | 2021-10-11 16:48 | NUR ---
SEEN AND EVALUATED BY SPEECH THERAPY AND RECOMMEND FOR PUREED DIET WITH THIN LIQUID. VERIFIED WITH DR. BURK ORDER NOTED AND CARRIED OUT. PT AND DAUGHTER AWARE.
[2021-10-11 18:22] LABS: T4 (THYROXINE) 7.9 ug/dL (4.5 - 12.0)
--- NOTE | 2021-10-11 18:30 | NUR ---
PT ON BED AND DAUGHTER AT BED SIDE. NO DISTRESS NOTED. REPOSITION AND KEEP COMFORTABLE. PT NO BOWEL MOVEMENT NOTED TODAY DESPITE OF LACTULOSE AND SENNA GIVEN. ENCOURAGE TO INCREASE FLUID TOLERATED. ALL SAFETY MEASURE IN PLACE . CALL LIGHT WITH IN EASY REACH.
--- NOTE | 2021-10-11 19:15 | NUR ---
PT ASLEEP ON STABLE CONDITION. GIVE REPORT TO PROCUREMENT MANAGER NURSE FOR CONTINUITY OF CARE. ALL SAFETY MEASURE IN PLACE. CALL LIGHT WITH IN EASY REACH.
--- NOTE | 2021-10-11 19:16 | NUR ---
RECEIVED REPORT FROM AM NURSE FOR CONTINUITY OF CARE. PT STABLE AND FAMILY AT BEDSIDE.
--- NOTE | 2021-10-11 20:14 | NUR ---
PT FAMILY MEMBER AT BEDSIDE EXPLAINED VISITING HOURS ARE OVER. PT IS AxOx2. NO S/S OF DISTRESS BREATHING ON RA. PT HAS NO IV OR FLUIDS RUNNING. ADMINISTERED MEDICATIONS ORDERED AND TOLERATED IT WELL. SAFETY MEASURES IN PLACE AND CALL LIGHT WITHIN REACH. WILL CONTINUE TO MONITOR.
[2021-10-11] MEDS: QUEtiapine FUMARATE 25 MG TAB PO SCH (20:15)
[2021-10-11] MEDS ORDERED: cephALEXin 500 MG CAP PO SCH ×2 (21:00)
--- NOTE | 2021-10-11 23:10 | NUR ---
PT HAS AN ELEVATED TEMP 99.9. REMOVED COVERS AND PLACED AN ICE PACK. WILL REASSESS PT TEMPERATURE.
--- NOTE | 2021-10-12 01:44 | NUR ---
PT IN BED SLEEPING. NO SIGNS OF DISTRESS. BREATHING ON RA. CALL LIGHT WITHIN REACH. WILL CONTINUE TO MONITOR.
[2021-10-12 04:00] VITALS: BP 110/61
--- NOTE | 2021-10-12 04:52 | NUR ---
WOUND CARE PROVIDED. CHANGED PT SACRAL WOUND, RIGHT LATERAL LOWER, AND LEFT HEEL ORDERED. COCCYX WOUND HAD MODERATE DRAINAGE SEROSANGUINEOUS. RLL MINIMAL SEROSANGUINEOUS. LHEEL NO DRAINAGE. REPOSITION PT. SAFETY MEASURES IN PLACE. CALL LIGHT WITHIN REACH.
--- NOTE | 2021-10-12 06:07 | NUR ---
PT IN BED SLEEPING. DENIES PAIN. NO S/S OF DISTRESS. CALL LIGHT WITHIN REACH AND SAFETY MEASURES IN PLACE.
[2021-10-12 07:01] LABS: ANION GAP 9.8 (8-16); CARBON DIOXIDE 25.7 mmol/L (21-32); CHLORIDE 111 mmol/L (98-107); CREATININE 0.9 mg/dL (0.6-1.3); GLUCOSE 94 mg/dL (74-106); POTASSIUM 3.5 mmol/L (3.5-5.1); SODIUM SERUM 143 mmol/L (136-145); UREA NITROGEN, BLOOD 20 mg/dL (7-18)
[2021-10-12 07:19] LABS: BASOPHILS % (AUTO) 0.5 % (0.0-2.0); EOSINOPHILS # (AUTO) 0.2 K/uL (0-0.4); EOSINOPHILS % (AUTO) 3.3 % (0.0-4.0); HEMATOCRIT 25.8 % (36-48); HEMOGLOBIN 8.7 g/dL (12.0-16.0); LYMPHOCYTES # (AUTO) 1.9 K/uL (2.5-16.5); LYMPHOCYTES % (AUTO) 33.7 % (20.5-51.1); MEAN CORPUSCULAR HEMOGLOBIN 30 pg (27-31); MEAN CORPUSCULAR HGB CONC 34 g/dL (33-37); MEAN CORPUSCULAR VOLUME 90.2 fL (80-94); MONOCYTES # (AUTO) 0.7 K/uL (0.8-1.0); MONOCYTES % (AUTO) 11.4 % (1.7-9.3); NEUTROPHILS # (AUTO) 2.9 K/uL (1.8-7.7); NEUTROPHILS % (AUTO) 51.1 % (42.2-75.2); PLATELET COUNT (AUTO) 187 K/uL (140-450); RED BLOOD CELL COUNT(AUTO) 2.86 MIL/uL (4.20-5.40); RED CELL DISTRIBUTION WIDTH 15.4 % (11.6-13.7); WHITE BLOOD COUNT (AUTO) 5.7 K/uL (4.8-10.8)
--- NOTE | 2021-10-12 07:23 | NUR ---
ENDORSED REPORT TO AM NURSE FOR CONTINUITY OF CARE. PT STABLE.
--- NOTE | 2021-10-12 07:37 | NUR ---
RECEIVED BEDSIDE REPORT FROM RELIABILITY TECHNOLOGIST NURSE FOR CONTINUITY OF CARE. PATIENT IS AOX2, RESPIRATIONS EVEN AND UNLABORED. ON ROOM AIR AND NO RESPIRATORY DISTRESS NOTED. SKIN IS WARM, DRY, NOTED WOUND ON SACRAL AREA RIGHT LATERAL LEG AND LEFT HEEL . PATIENT HAS NO IV. DENIES PAIN AT THE MOMENT.SAFETY PRECAUTIONS IN PLACE. CALL LIGHT WITHIN REACH
[2021-10-12] MEDS ORDERED: BISA-218 RC (09:03)
[2021-10-12] MEDS ORDERED: MEMA10TA PO (09:03)
[2021-10-12] MEDS ORDERED: LACT10SO11 PO (09:03)
[2021-10-12] MEDS ORDERED: ACET-1182 PO (09:03)
[2021-10-12] MEDS ORDERED: ROC1PM IV (09:03)
[2021-10-12] MEDS: NACL 0.9% 1,000 ML IV SCH (09:20)
[2021-10-12] MEDS ORDERED: LIDOCAINE MPF 1% 5 ML ONE (09:36)
[2021-10-12] MEDS ORDERED: cefTRIAXone 1,000 MG VIAL ONE (09:36)
[2021-10-12] MEDS: MEMANTINE 10 MG TAB PO SCH (09:51)
[2021-10-12] MEDS: LOSARTAN 50 MG TAB PO SCH (09:51)
[2021-10-12] MEDS: GABAPENTIN 300 MG CAP PO SCH (09:52)
[2021-10-12] MEDS: PANTOPRAZOLE 40 MG TABEC PO SCH (09:52)
[2021-10-12] MEDS: LACTULOSE 20 GM/30 ML UDC PO SCH (09:53)
[2021-10-12] MEDS: cefTRIAXone 1,000 MG in LIDOCAINE MPF 1% 2.1 ML INJ SCH (09:56)
--- NOTE | 2021-10-12 10:23 | NUR ---
PATIENT IN BED NO COMPLAINS, GOT MORNING MEDICATION TOLERATED WELL, ALL SAFETY MEASURES ON PLACE, CALLS LIGHT WITHIN REACH Addendum: 10/12/21 at 1024 by Elly Perez RN RN FAMILY MEMBER NEXT TO BED SIDE, , ASKED PHARMACY ABOUT ROCEPHIN , THEY SAID TO MIXED IT WITH LIDOCAINE MD ORDER AND GIVE IT IM. PATIENT WILL BE DISCHARGE TODAY
[2021-10-12 10:45] VITALS: BP 138/78
--- NOTE | 2021-10-12 13:00 | NUR ---
WOUND CARE EVALUATION NOTE: SKIN ASSESSMENT DONE WITH PRIMARY RN,PT. IS ABOUT TO DISCHARGE, WOUNDS PHOTO OBTAINS, POC DISCUSSED WITH DAUGHTER RECOMMEND ALGINATE DRESSING. PER DAUGHTER PT. HAS PRESSURE INJURIES FOR MONTHS AND HAS BEEN USING MUPIROCIN 2% AND WISH TO CONTINUE. WOUND CARES POC DISCUSSED WITH DAUGHTER AND SPOKE TO DR. SANTO OF DAUGHTER'S REQUEST. PER DOCTOR HE WILL PUT THE ORDER IN. PT. ADMITTED WITH MULTIPLE PRESSURE INJURIES, TODAY'S ASSESSMENT: -PRESSURE INJURY STAGE 3 TO RIGHT LATERAL LOWER LEG FIBULA AREA 2X1X0.2CM, WOUND BED 70% SOFT LIGHT YELLOW THIN SLOUGH TISSUE AND 30% PINK GRANULATING TISSUE, MOIST NO ODOR, WOUND EDGE FLAT, QING-WOUND SKIN INTACT. -PRESSURE INJURY STAGE 2 LEFT HEEL 1X1CM SUPERFICIAL DEPTH, WOUND BED 100% PINK GRANULATING TISSUE, MOIST NO ODOR, WOUND EDGE FLAT, QING-WOUND SKIN INTACT. -PRESSURE INJURY STAGE 4 SACRALCOCCYX 3X4X0.2CM, WOUND BED 100% PINK GRANULATING TISSUE, MOIST NO ODOR, UNDERMINING 9 O'CLOCK DIRECTION, WOUND EDGE FLAT, QING-WOUND SKIN INTACT OLD HEALED SURGICAL SCARS TO LOWER LUMBAR AREA RECOMMENDATIONS -CLEANSE SACRALCOCCYX, RIGHT LATERAL LEG AND LEFT HEEL WITH NS, PAT DRY, APPLY ALGINATE DRESSING THEN COVER WITH FOAM DRESSING CHANGE Q3D AND PRN IF SOILING,OFFLOADING AT ALL TIMES -TURN AND REPOSITION PATIENT Q 2H -ASSESS AND MONITOR SKIN CONDITION DURING POSITION CHANGE -OFFLOAD BILATERAL HEELS BY PLACING PILLOWS UNDER CALVES AT ALL TIMES, UNLESS OTHERWISE CONTRAINDICATED -PRESSURE REDISTRIBUTION SURFACE THERAPY -KEEP SKIN CLEAN AND DRY AT ALL TIMES.
--- NOTE | 2021-10-12 13:23 | NUR ---
PATIENT GOT CLEANED AND CHANGED FAMILY MEMBER NEXT TO BED SIDE, ID BAND REMOVED, ALL BELONGINGS SENT WITH THE PATIENT, PATIENT HAS NO IV, DISCHARGE PACKET AND EDUCATION GIVEN , REPORT GIVEN TO RN IN [facility]. PATIENT WALKED TO THE FRONT LOBBY.
[2021-10-12 16:05] LABS: FOLIC ACID 14.8 ng/mL (>3.0)
== END 2021-10-12 13:31 | DRG 640 ==
LOC: MED 13:54 → EDBD 13:54 → MTU 17:20
PROVIDERS: ADMIT Family Medicine; ATTEND Family Medicine
DX: E86.0 Dehydration (principal); G93.41 Metabolic encephalopathy; N39.0 Urinary tract infection, site not specified; E87.0 Hyperosmolality and hypernatremia; D64.9 Anemia, unspecified; G20 Parkinson's disease; R13.10 Dysphagia, unspecified; I10 Essential (primary) hypertension; F03.90 Unspecified dementia, unspecified severity, without behavioral disturbance, psychotic disturbance, mood disturbance, and anxiety; K59.00 Constipation, unspecified; Z20.822 Contact with and (suspected) exposure to COVID-19; Z79.899 Other long term (current) drug therapy; Z79.82 Long term (current) use of aspirin
CPT/HCPCS: 36415; 71045; 80048; 80053; 81001; 82150; 82272; 82607; 82728; 82746; 83036; 83540; 83605; 83690; 83735; 83880; 84100; 84436; 84439; 84443; 84479; 84484; 85025; 85610; 85730; 87040; 87081; 92526; 93005; 97110; 97112; 97163-GP; 97530; 99285; J0696; J2001; J7060; Q0092